=== PATIENT | female | born 1970 | race Caucasian/White ===

== ENCOUNTER → 2018-10-01 | Outpatient (REF) | payer OTHER ==
[2018-10-01 17:02] LABS: ALBUMIN 3.6 GM/DL (3.2-5.2); ALT/SGPT 20 U/L (12-78); BILIRUBIN,TOTAL 0.3 MG/DL (0.2-1.0); BLOOD UREA NITROGEN 11 MG/DL (7-18); C REACTIVE PROTEIN QUANTITATIV 0.69 MG/DL (0.00-0.30); CALCIUM LEVEL 8.7 MG/DL (8.5-10.1); CARBON DIOXIDE LEVEL 25 MEQ/L (21-32); CHLORIDE LEVEL 110 MEQ/L (98-107); CHOLESTEROL LEVEL 173 MG/DL (<200); CHOLESTEROL RISK RATIO 4.675 (<5); CREATININE FOR GFR 0.71 MG/DL (0.55-1.30); GLOMERULAR FILTRATION RATE > 60.0 (>51); GLUCOSE, FASTING 102 MG/DL (70-100); HDL CHOLESTEROL 37 MG/DL (>40); LDL CHOLESTEROL 94 MG/DL (<100); NON-HDL-C 136 MG/DL; POTASSIUM SERUM 4.5 MEQ/L (3.5-5.1); SODIUM LEVEL 141 MEQ/L (136-145); THYROID STIMULATING HORMONE 0.618 uIU/ML (0.358-3.740); TOTAL 25(OH) VITAMIN D 17.2 NG/ML (30.0-100.0); TOTAL PROTEIN 7.1 GM/DL (6.4-8.2); TRIGLYCERIDES LEVEL 210 MG/DL (<150); VITAMIN B12 LEVEL 439 PG/ML (247-911)
[2018-10-01 17:17] LABS: BASO # 0.1 10^3/uL (0.0-0.2); BASO % 0.5 % (0.0-1.0); EOS # 0.3 10^3/uL (0.0-0.50); EOS % 2.3 % (0.0-3.0); HEMATOCRIT 41.1 % (36.0-47.0); HEMOGLOBIN 12.9 g/dl (12.0-15.5); LYMPH # 2.1 10^3/uL (1.5-4.5); MEAN CORPUSCULAR HEMOGLOBIN 28.5 pg (27.0-33.0); MEAN CORPUSCULAR HGB CONC 31.4 g/dl (32.0-36.5); MEAN CORPUSCULAR VOLUME 90.7 fl (80.0-96.0); MONO # 0.8 10^3/uL (0.0-0.8); MONO % 7.3 % (0.0-5.0); NEUTROPHILS # 7.8 10^3/uL (1.8-7.7); NEUTROPHILS % 70.6 % (36.0-66.0); PLATELET COUNT, AUTOMATED 375 10^3/uL (150-450); RED BLOOD COUNT 4.53 10^6/uL (4.00-5.40)
[2018-10-01 19:26] LABS: ERYTHROCYTE SEDIMENTATION RATE 27 mm/hr (0-30)
[2018-10-02 08:16] LABS: RHEUMATOID FACTOR QUANT < 10.0 IU/ML (<15.0)
[2018-10-04 00:06] LABS: ANA (HEP2) Negative (.); CYCLIC CITRULLINATED PEPTIDE 4 units (0-19); Lyme Disease IgG/IgM Antibodie <0.91 ISR (0.00-0.90); Lyme Disease IgM Ab Quantitati <0.80 index (0.00-0.79)
== END ==
LOC: M SFHCCAPE 09:30
PROVIDERS: ATTEND Physician Assistant
DX: M79.7 Fibromyalgia (principal); E75.5 Other lipid storage disorders

== ENCOUNTER → 2018-10-01 | Outpatient (CLI) | payer OTHER ==
--- NOTE | 2018-10-01 10:41 | REP ---
Clinical: Chronic cough. Comparison: None . Technique: PA and lateral. Findings: The mediastinum and cardiac silhouette are normal. The lung chavira are clear and without acute consolidation, effusion, or pneumothorax. The skeletal structures are intact and normal. Impression: 1. No acute cardiopulmonary process.
== END ==
LOC: M CLY 10:10
PROVIDERS: ATTEND Physician Assistant
DX: R05 Cough (principal)

== ENCOUNTER → 2018-11-05 | Outpatient (CLI) | payer OTHER ==
--- NOTE | 2018-11-05 15:20 | REP ---
BILATERAL LOWER EXTREMITY VENOUS ULTRASOUND: Reflux examination. HISTORY: Leg pain, right greater than left. FINDINGS: The deep veins are anechoic and fully compressible from the groin to the popliteal fossa in both lower extremities on two-dimensional scanning. Color flow imaging is homogeneous. Spectral Doppler interrogation is unremarkable. There is no evidence of deep venous thrombosis (DVT). REFLUX FINDINGS: On the right, there is minimal reflux greater than 0.5-second seen in the common femoral vein proximally. There is reflux in the greater saphenous vein at the level of the knee on the right, 6.3 seconds in duration. No other right lower extremity reflux is seen. The greater saphenous vein measures 4 mm in AP dimension at the proximal saphenofemoral junction, 3.3 mm in AP dimension at the thigh, and 3.4 mm in AP dimension at the knee. The lesser saphenous vein measures 2.6 mm in AP dimension on the right. On the left, there is no evidence of superficial veins system reflux. There is reflux , greater than 0.5 seconds in duration, throughout the deep system however on the left. Greater saphenous vein measures 4.7 mm in AP dimension proximally, 3.3 mm at midthigh level, and 3.7 mm at the knee. The lesser saphenous vein measures 3.1 mm. IMPRESSION: Reflux is seen throughout the deep system in the left lower extremity. Minimal reflux is seen in the common femoral vein on the right and in the greater saphenous vein at the knee on the right. There is no evidence of DVT. Electronically Signed by Christiano Rod MD 11/05/2018 06:13 P
--- NOTE | 2018-11-05 17:30 | REP ---
Left upper extremity arterial Doppler ultrasound: History: Acute embolism and thrombus unspecified veins of the left upper extremity. The patient gives a history of left arm angiography at another facility May 2018 due to absent pulses. There is apparently a palpable area in the antecubital fossa. Findings: Scanning in the area of the palpable region in the left antecubital fossa shows no abnormality. Normal velocities and waveforms are observed in the arterial structures in the left upper extremity. There is no evidence of stenosis or occlusion. Velocity chart left upper extremity arteries: Proximal subclavian artery 126 cm/S Distal subclavian 66 Axillary 77 Proximal brachial 123 Mid brachial 142 Distal brachial 100 Proximal ulnar 66 Mid ulnar 59 Distal ulnar 48 Proximal radial 50 Mid radial 58 Distal radial 54 Electronically Signed by Christiano Rod MD 11/05/2018 05:21 P
== END ==
LOC: M RAD 12:29
PROVIDERS: ATTEND Surgery Vascular Surgery
DX: I82.602 Acute embolism and thrombosis of unspecified veins of left upper extremity (principal); I83.893 Varicose veins of bilateral lower extremities with other complications

== ENCOUNTER → 2018-11-27 | Outpatient (CLI) | payer OTHER ==
[2018-11-27 17:02] LABS: ALBUMIN 3.6 GM/DL (3.2-5.2); ALT/SGPT 23 U/L (12-78); AMYLASE 37 U/L (25-115); BILIRUBIN,DIRECT < 0.1 MG/DL (0.0-0.2); BILIRUBIN,TOTAL 0.3 MG/DL (0.2-1.0); C REACTIVE PROTEIN QUANTITATIV 1.43 MG/DL (0.00-0.30); LIPASE 71 U/L (73-393); TOTAL PROTEIN 7.5 GM/DL (6.4-8.2)
[2018-12-02 09:48] LABS: IGASUB3 29.2 mg/dL (13.4-97.9); IgA SERUM (part of Subclasses) 162 mg/dL (87-352); TISSUE TRANSGLUTAMINASE IgA <2 U/mL (0-3)
== END ==
LOC: M LAB 15:04
PROVIDERS: ATTEND Internal Medicine Gastroenterology
DX: R19.7 Diarrhea, unspecified (principal)

== ENCOUNTER → 2018-11-27 | Outpatient (CLI) | payer OTHER ==
--- NOTE | 2018-11-27 16:08 | REP ---
Left arm extremity deep vein duplex ultrasound: The deep veins demonstrate normal compression, normal Doppler color flow and normal Doppler waveforms with respiration augmentation at multiple levels from the brachial veins to the jugular vein. Impression: There is no left upper extremity deep vein thrombus. Electronically Signed by Jeramy Macdonald MD 11/27/2018 04:00 P
== END ==
LOC: M RAD 14:08
PROVIDERS: ATTEND Physician Assistant
DX: I74.2 Embolism and thrombosis of arteries of the upper extremities (principal); I87.2 Venous insufficiency (chronic) (peripheral)

== ENCOUNTER → 2019-01-02 | Outpatient (CLI) | payer OTHER ==
--- NOTE | 2019-01-02 15:50 | REP ---
Pelvis: Two views. History: Severe low back pain. Findings: AP and frog-leg views of the sacrum and SI joints are unremarkable. Symphysis pubis is intact. Hip joint spaces are preserved. Femoral heads are smooth and rounded. Periarticular soft tissues are unremarkable. Impression: Negative two-view pelvis radiographs. Electronically Signed by Christiano Rod MD 01/02/2019 04:09 P
--- NOTE | 2019-01-02 15:55 | REP ---
RIGHT KNEE, TWO VIEWS: Two views of the right knee performed. There is no acute fracture, dislocation, or intrinsic bone disease. Joint spaces appear normal. I do not see a significant joint effusion. IMPRESSION: Negative right knee. Electronically Signed by Jeramy Walker MD 01/05/2019 04:26 P
== END ==
LOC: M RAD 13:50
PROVIDERS: ATTEND Anesthesiology
DX: M25.561 Pain in right knee (principal)

== ENCOUNTER → 2019-01-02 | Outpatient (CLI) | payer OTHER, MEDICAID ==
--- NOTE | 2019-01-10 01:05 | ECWPNPC ---
PATIENT NAME: AMY BRITT : 1970 GENDER: FEMALE VISIT DATE: 01/02/2019 DISCHARGE DATE: 01/02/19 1341 VISIT LOCKED DATE TIME: PHYSICIAN: MELVIN BUCKNER MD RESOURCE: MELVIN BUCKNER MD REASON FOR APPOINTMENT 1. FIBROMYALGIA HISTORY OF PRESENT ILLNESS NEW PATIENT CONSULT: WHEN DID YOUR PAIN FIRST START? . BRIEFLY DESCRIBE HOW YOUR PAIN STARTED? . HOW DOES YOUR PAIN CHANGE WITH TIME? . DOES YOUR PAIN AWAKEN YOU FROM SLEEP? . HOW MANY HOURS OF SLEEP DO YOU NORMALLY GET? . ANY DIAGNOSTIC TESTING? . FACILITY WHERE TESTS WERE DONE? ____. PAIN TREATMENT TREATMENT YES CANCER HAVE YOU EVER HAD ANY TYPE OF CANCER?NO NO. 48 YEAR OLD FEMALE PATIENT WITH A HISTORY OF CHRONIC MULTIPLE BODY PART PAIN. THE PATIENT DESCRIBES THE PAIN BURNING, DAILY, AND CONTINUOUS WITH A PAIN SCORE OF 6-10/10 DEPENDING ON PHYSICAL ACTIVITY. THE PATIENT STATES SHE WAS DIAGNOSED WITH FIBROMYALGIA YEARS AGO. THE PATIENT SAYS SOME SPECIFIC AREAS OF PAIN INCLUDES CERVICAL, THORACIC, LOW BACK, RIGHT KNEE, AND FOOT PAIN. THE PATIENT SAYS SHE HAS BEEN SUFFERING FROM THE RIGHT KNEE PAIN FOR SEVERAL YEARS AND HAS RECEIVED CORTISONE SHOTS FROM HER ORTHOPEDIC IN THE PAST THAT PROVIDED A COUPLE OF MONTHS OF RELIEF FOR HER. THE PATIENT STATES THE WORST PAIN IS HER RIGHT KNEE AND LOW BACK PAIN. THE PATIENT SAYS HER PAIN INCREASES WITH ACTIVITIES AND IS AFFECTING HER ABILITY TO PERFORM HER DAILY ACTIVITIES SUCH CLEANING, WALKING, AND ENJOYING HER HOBBIES. PATIENT DENIES UNEXPLAINABLE WEIGHT LOSS, FEVER, CHILLS, NEW CHANGES ON HER URINARY OR BOWEL CONTROL. PAIN SCREENING: PATIENT HAS A COMPLAINT OF ACUTE OR CHRONIC PAIN :YES FALL RISK SCREENING: SCREENING : NO FALLS IN THE PAST YEAR. RAMEY INVENTORY: QUESTIONNAIRE ASSESSEDTBD SCORE VALUE CALCULATED TBD CURRENT MEDICATIONS TAKING ATORVASTATIN CALCIUM 40 MG TABLET 1 TABLET ORALLY ONCE A DAY TAKING FLONASE TAKING CETIRIZINE HCL 10 MG TABLET 1 BY MOUTH EVERY DAY TAKING APIXABAN 5 MG TABLET 1 TAB ORALLY BID TAKING GABAPENTIN 400 MG CAPSULE 1 CAPSULE ORALLY THREE TIMES A DAY TAKING ACETAMINOPHEN 500 MG TABLET 1-2 TABLETS NEEDED ORALLY EVERY 8 HRS TAKING DOCUSATE SODIUM 100 MG CAPSULE 1 CAPSULE NEEDED ORALLY BID TAKING VENTOLIN HFA 108 (90 BASE) MCG/ACT AEROSOL SOLUTION 2 PUFFS NEEDED INHALATION EVERY 6 HRS TAKING HYDROXYZINE HCL 50 MG TABLET 1 TABLET NEEDED ORALLY EVERY 6 HRS PRN TAKING VITAMIN D-3 5000 UNIT TABLET 1 TAB ORALLY ONCE A DAY TAKING VENLAFAXINE HCL ER 75 MG CAPSULE EXTENDED RELEASE 24 HOUR TAKE 1 CAPSULE BY MOUTH DAILY. TAKING TRAZODONE HCL 50 MG TABLET 3 TABLETS AT BEDTIME ORALLY ONCE A DAY TAKING VENLAFAXINE HCL ER 150 MG CAPSULE EXTENDED RELEASE 24 HOUR TAKE 1 CAPSULE BY MOUTH DAILY. MEDICATION LIST REVIEWED AND RECONCILED WITH THE PATIENT PAST MEDICAL HISTORY MIGRAINE FIBROMYALGIA PAF BILIARY DYSKINESIA GENERALIZED ANXIETY DISORDER MOOD DISORDER IBS SLEEP APNEA USES CPAP INSOMNIA BIPOLAR 2 DEPRESSION CHRONIC PAIN MIGRAINES WITH AURA PLANTAR FASECITIS PSTD SCIATICA PAROXYSMAL A-FIB ALLERGIES AMOXICILLIN: CONFUSION - ALLERGY CITALOPRAM HYDROBROMIDE: NAUSEA/VOMITING - SIDE EFFECTS PHENYTOIN SODIUM EXTENDED: HYPERACTIVITY - SIDE EFFECTS FLUOXETINE: AGGRESION - SIDE EFFECTS PAROXETINE HCL: AGGRESION PHENOBARBITAL: HIVES - ALLERGY SURGICAL HISTORY TUBAL LIGATION 04/08/1989 AMPUTATION OF 2ND FINGER RIGHT HAND 04/08/1995 GALLBLADDER OUT 05/2017 ARTRIAL EMBOLISM 05/28/18 FAMILY HISTORY FATHER: 63 YRS, DIAGNOSED WITH HYPERTENSION, UNSPECIFIED HEART DISEASE MOTHER: 78 YRS, UNSPECIFIED CEREBRAL ARTERY OCCLUSION WITH CEREBRAL INFARCTION, UNSPECIFIED 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 1 SON(S) , 3 DAUGHTER(S) - HEALTHY. BROTHER HEAT ATTACK FROM HYPERTENSION @ AGE 53BROTHER HYPERTENSION. SOCIAL HISTORY GENERAL: TOBACCO USE ARE YOU A:CURRENT SMOKER ARE YOU INTERESTED IN QUITTING?NOT READY TO QUIT HOW MANY CIGARETTES A DAY DO YOU SMOKE?21-30 HOW SOON AFTER YOU WAKE UP DO YOU SMOKE YOUR FIRST CIGARETTE?6-30 MIN HOW OFTEN DO YOU SMOKE CIGARETTES?EVERY DAY PATIENT COUNSELED ON THE DANGERS OF TOBACCO USE AND URGED TO QUIT:01/02/2019 VAPORNO E-CIGARETTENO OTHERS AT HOME: NONE. EDUCATION LEVEL OF EDUCATION:HIGH SCHOOL DIET: REGULAR. LANGUAGE LANGUAGES SPOKEN:PORTUGUESE DOMESTIC VIOLENCE DO YOU FEEL SAFE IN YOUR ENVIRONMENT?YES RECREATIONAL DRUG USE DRUG USE?NO EXERCISE: WALKS. LEARNING BARRIERS / SPECIAL NEEDS CHANGE FROM LAST VISIT?NO 11/18/2018 BARRIERS TO LEARNING?NO HEARING IMPAIRED?NO VISION IMPAIRED?YES COGNITIVELY IMPAIRED?NO :CORRECTIVE LENSES READINESS TO LEARN?YES LEARNING PREFERENCES?NO LEARNING CAPABILITIES PRESENT?YES EMOTIONAL BARRIERS?NO SPECIAL DEVICES?NO CNA NEEDED?NO PAIN CLINIC PFS, CLERGY, PUBLIC HEALTH REFERRALS PUBLIC HEALTH REFERRAL NEEDED?NO PFS REFERRAL NEEDED?NO WAS THE PROVIDER NOTIFIED OF ANY PERTINENT INFO?NO CLERGY REFERRAL NEEDED?NO LATEX QUESTIONNAIRE LATEX ALLERGY : HAVE YOU EVER DEVELOPED ANY TYPE OF REACTION AFTER HANDLING LATEX PRODUCTS SUCH RUBBER GLOVES, CONDOMS, DIAPHRAGMS, BALLOONS, SOCKS, OR UNDERWEAR?NO LATEX ALLERGY : HAVE YOU EVER DEVELOPED ANY TYPE OF REACTION DURING OR AFTER DENTAL APPOINTMENT, VAGINAL/RECTAL EXAMINATION, SURGICAL PROCEDURE, OR ANY OTHER EXPOSURE?NO LATEX RISK : HAVE YOU EVER HAD ANY DIFFICULTY BREATHING OR HIVES AFTER EATING OR HANDLING ANY FRUITS, OR VEGETABLES; SUCH KIWI, BANANAS, STONE FRUITS, OR CHESTNUTSNO LATEX RISK : DO YOU HAVE A PREVIOUS PERSONAL HISTORY OF MORE THAN NINE SURGERIES, SPINA BIFIDA, OR REPEATED CATHERIZATIONS? NO LATEX RISK : ARE YOU FREQUENTLY EXPOSED TO LATEX PRODUCTS IN YOUR OCCUPATION?NO DATE ASKED : 01/02/2019 CAFFEINE CAFFEINE USE?YES COFFEE,SODA,ENERGY DRINKS ADVANCE DIRECTIVE ADVANCE DIRECTIVE DISCUSSED WITH PATIENT:NO PT. HAS PAPER WORK AT HOME TENRIISM TENRIISM NO HINDUISM BELIEFS THAT WOULD IMPACT HEALTH CARE. MARITAL STATUS: .. ALCOHOL SCREENING DID YOU HAVE A DRINK CONTAINING ALCOHOL IN THE PAST YEAR?NO POINTS0 INTERPRETATIONNEGATIVE OCCUPATION: DISABILITY. HOSPITALIZATION/MAJOR DIAGNOSTIC PROCEDURE SURGERY SEIZURE 1979 BLOOD CLOT REMOVAL 05/16/18 LOOP RECORDER INPLANT 05/20/18 REVIEW OF SYSTEMS REVIEWED BY: PROVIDER: MELVIN BUCKNER MD . CONSTITUTIONAL: ANY CHANGE IN YOUR MEDICAL CONDITION? NO . CHILLS NO . FEVER NO . INFECTION: DO YOU HAVE NEW INFECTIONS? NO . DO YOU HAVE HISTORY OF MRSA? NO . MUSCULOSKELETAL: ANY NEW PATTERNS OF PAIN OR NUMBNESS? NO . SYTEMIC LUPUS NO . GASTROENTEROLOGY: ANY NEW CHANGE IN BOWEL CONTROL? YES . BARRETTS ESOPHAGUS NO . CIRRHOSIS NO . HEPATITIS NO . LIVER FAILURE NO . ACID REFLUX NO . UNEXPLAINED WEIGHT LOSS NO . GENITOURINARY: ANY NEW CHANGE IN BLADDER CONTROL? NO . IS THERE A CHANCE YOU COULD BE ? NO . HEMATOLOGY/LYMPH: DO YOU TAKE ANY BLOOD THINNERS? (FOR EXAMPLE- COUMADIN, PLAVIX, AGGRENOX, PLATEL, PRADAXA, OR XARELTO) YES . WHEN WAS YOUR LAST DOSE? DATE: TIME: . LOW PLATELET COUNT NO . SICKLE CELL DISEASE NO . VON WILLIEBRANDS NO . FACTOR V LEIDEN NO . THALLASEMIA NO . ANEMIA NO . EASY BRUISING ON ANTICOAGULANTS . NEUROLOGY: HAVE YOU FALLEN IN THE PAST 12 MONTHS? NO . ANY NEW EXTREMITY NUMBNESS OR WEAKNESS? NO . HEAD INJURY NO . DEMENTIA NO . CEREBRAL PALSY NO . MULTIPLE SCLEROSIS NO . DIZZINESS NO, LIGHTHEADED SENSATION . HEADACHE NO, ASSOCIATED WITH PHOTOPHOBIA . STROKES NO . VERTIGO NO . CARDIOLOGY: DO YOU HAVE A PACEMAKER OR DEFIBRILLATOR? NO . ANGINA NO . HEART ATTACK NO . HEART SURGERY NO . CONGESTIVE HEART FAILURE/FLUID OVERLOAD NO . CHEST PAIN NO, NON-RADIATING, OCCASIONAL . HIGH BLOOD PRESSURE NO . IRREGULAR HEART BEAT NO . RESPIRATORY: HAVE YOU BEEN SICK IN THE PAST WEEK? NO . FEVER NO . FLU LIKE SYMPTOMS? NO . CPAP YES . BYPAP NO . ASTHMA YES . EMPHYSEMA NO . CHRONIC LUNG DISEASES NO . SHORTNESS OF BREATH ON EXERTION YES . DO YOU USE ANY TYPE OF TOBACCO (SMOKE, SMOKELESS, CHEW)? YES . COUGH YES . SNORING YES . INTEGUMENTARY: DO YOU HAVE ANY RASHES OR OPEN SORES? YES, ON BACK . ALLERGIC/IMMUNO: ARE YOU ALLERGIC TO IV DYE? NO . ANY NEW ALLERGIES? NO . PSYCHIATRIC: DO YOU HAVE THOUGHTS OF HURTING YOURSELF OR SOMEONE ELSE? NO . ARE YOU ABUSED, NEGLECTED, OR IN AN UNSAFE ENVIRONMENT? NO . ENDOCRINOLOGY: ARE YOU DIABETIC? NO . THYROID DISORDER NO . OTHER: DO YOU NEED ANY PRESCRIPTIONS? NO . IF YES, PLEASE LIST: ____ . ANY NEW PROBLEMS WITH YOUR MEDICATIONS? NO . WHEN DID YOU LAST EAT? ____ . WHEN DID YOU LAST DRINK? ____ . WHAT DID YOU LAST DRINK? ____ . NAME OF PERSON DRIVING YOU HOME? ____ . DO YOU HAVE ANY OTHER QUESTIONS OR CONCERNS NO . VITAL SIGNS WT 190 LBS, HT 5'5", BMI 31.61 INDEX, BP 107/53 MM HG, HR 81 /MIN, RR 16 /MIN, TEMP 98.2 F, OXYGEN SAT % 98%, SAFE IN ENV? (Y/N) YES, NA INITIALS SC 11:04, REVIEWED BY: VANNESSA. EXAMINATION GENERAL EXAMINATION: PATIENT IS ALERT O X 3 AND COOPERATIVE. LUNGS CLEAR, TO AUSCULTATION. HEART: NO MURMURS OR GALLOPS; FACIAL CRANIAL NERVES ARE GROSSLY NORMAL. GOOD SYMMETRY OF FACIAL MUSCLE MOVEMENT. NORMAL VISUAL GRANADO. TENDERNESS OVER THE RIGHT KNEE. CREPITUS OF THE RIGHT KNEE WITH EXTENSION AND FLEXION. TENDERNESS AND PRESENCE OF BANDS OF TISSUE AND TRIGGER POINTS OF THE THORACIC AND CERVICAL AREAS. TENDERNESS IN THE LOW BACK OVER THE SACROILIAC JOINT. FABERE TEST IS POSITIVE FOR RIGHT SACROILIAC JOINT DYSFUNCTION. NOTES FROM THE REFERRING PHYSICIAN IS IN PATIENTS CHART. 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 BRITT'S PAIN MANAGEMENT CASE. DUE TO THE TRIGGER POINTS, BANDS OF TISSUE, AND RESTRICTION OF MOVEMENT, I WOULD LIKE TO MOVE FORWARD WITH NECK AND THORACIC TRIGGER POINT INJECTION AT THIS TIME. WE DISCUSSED THE BENEFITS, RISKS, AND ALTERNATIVES OF THE INJECTION AND THE PATIENT WOULD LIKE TO PROCEED. I AM ORDERING FOR A PELVIC, WITH SPECIAL ATTENTION TO THE RIGHT SACROILIAC JOINT, AND A RIGHT KNEE X-RAY TO BE PERFORMED TO GAIN BETTER UNDERSTANDING OF THE PATIENT'S PAIN IN THESE AREAS. I WILL REFER THE PATIENT TO A FILM SOUND COORDINATOR TO RECEIVE TREATMENT FOR HER RIGHT FOOT PAIN. I AM ALSO REFERRING THE PATIENT TO [facility]'S PALLIATIVE CARE STAR PROGRAM FOR MEDICATION MANAGEMENT. THE PATIENT WILL FOLLOW UP IN SEVERAL WEEKS AFTER HER INJECTION TO SEE HOW SHE IS DOING AND TO REVIEW THE X-RAY RESULTS. INSTRUCTIONS WERE GIVEN, QUESTIONS WERE ANSWERED, PATIENT REPORTS UNDERSTANDING AND AGREES WITH THE PLAN. I, CARMEN JEROME, DOCUMENTED THE ABOVE INFORMATION ACTING A SCRIBE FOR DR. BUCKNER. I HAVE REVIEWED THE ABOVE DOCUMENT, WRITTEN BY CARMEN YATES AND I VERIFY THAT IT IS ACCURATE. DEAR SHERWIN KELLY PA-C: THANK YOU FOR YOUR KIND REFERRAL OF AMY BRITT. IF YOU WANT TO DISCUSS HER CASE WITH ME PLEASE CALL ME AT THE PAIN CENTER AT [phone]. SINCERELY, MELVIN BUCKNER MD PAIN MEDICINE . OTHERS NOTES: TRIGGER POINT INJECTION, TRIGGER POINT INJECTION HOME CARE, TRIGGER POINT INJECTIONS MATERIAL WAS PUBLISHED TO [employer],TRIGGER POINT INJECTION MATERIAL WAS PRINTED,TRIGGER POINT INJECTION HOME CARE MATERIAL WAS PRINTED. PREVENTIVE MEDICINE PAIN CLINIC TEACHING: PROCEDURE TEACHING PRE TRIGGER POINT INJECTION INSTRUCTIONS REVIEWED WITH PT. VERBALIZED UNDERSTANDING.. PROCEDURE CODES FA211 ESTABILISHED PATIENT [facility] FACILITY CHARGE [id number] CURRENT MEDS W/DOSAGES DOCUMENTED G8730 PAIN ASSESS POS TOOL F/U PLAN DOC DISPOSITION & COMMUNICATION FOLLOW UP REASON: CERVICAL & THORACIC TPI, X-RAYS ELECTRONICALLY SIGNED BY MELVIN BUCKNER MD, MD ON 01/09/2019 AT 05:43 PM EDT DISCLAIMER : THIS IS A VISIT SUMMARY EXTRACTED FROM THE [employer] CHART. IT IS NOT A COPY OF THE [employer] PROGRESS NOTE. [place]
== END ==
LOC: M PAIN 10:30
PROVIDERS: ATTEND Anesthesiology
DX: M79.18 Myalgia, other site (principal); M54.5 Low back pain; G89.29 Other chronic pain; M54.6 Pain in thoracic spine; M54.2 Cervicalgia; M46.1 Sacroiliitis, not elsewhere classified; M25.561 Pain in right knee; M53.3 Sacrococcygeal disorders, not elsewhere classified; G43.909 Migraine, unspecified, not intractable, without status migrainosus; Z86.59 Personal history of other mental and behavioral disorders; G47.30 Sleep apnea, unspecified; G47.00 Insomnia, unspecified; F17.210 Nicotine dependence, cigarettes, uncomplicated; Z88.1 Allergy status to other antibiotic agents; Z88.8 Allergy status to other drugs, medicaments and biological substances; J45.909 Unspecified asthma, uncomplicated; Z79.899 Other long term (current) drug therapy

== ENCOUNTER → 2019-01-08 | Outpatient (REF) | payer OTHER, MEDICAID ==
[2019-01-08 19:16] LABS: CLOSTRIDIUM DIFFICILE PCR NEGATIVE (NEGATIVE)
== END ==
LOC: M LAB REF 18:20
PROVIDERS: ATTEND Internal Medicine Gastroenterology
DX: R19.7 Diarrhea, unspecified (principal)

== ENCOUNTER → 2019-01-15 | Outpatient (CLI) | payer OTHER, MEDICAID ==
--- NOTE | 2019-02-03 01:18 | ECWPNPC ---
PATIENT NAME: AMY BRITT : 1970 GENDER: FEMALE VISIT DATE: 01/15/2019 DISCHARGE DATE: 01/15/19 1250 VISIT LOCKED DATE TIME: PHYSICIAN: ANISHA LOVELL RESOURCE: ANISHA LOVELL REASON FOR APPOINTMENT 1. PER DR. Coker- MEDICATION MANAGEMENT HISTORY OF PRESENT ILLNESS HISTORY OF PRESENT ILLNESS: HERE FOR F/U OF CHRONIC GENERALIZED BODY PAIN WITH HX OF FIBROMYALGIA.SHE IS NEW TO THE AREA AND HAS HAD SOME DELAYS WITH ESTABLISHING WITH PRIMARY CARE AND PSYCHIATRY.SHE IS WEEPY DURING VISIT.COMPLAINING OF NECK AND GENERALIZED BACK PAIN.RATING PAIN VAS 7/10.PAIN DISRUPTS SLEEP.REVIEWED XRAYS OF PELVIS AND RIGHT KNEE DR BUCKNER ORDERED AT INITIAL VISIT.THESE ARE BASICALLY NORMAL.DISCUSSED TREATMENT OPTIONS TO INCLUDE PT AND NSAIDS.I WILL CHECK ON PALLIATIVE CARE REFERRAL THAT WAS MADE AT INITIAL VISIT. PAIN THE PATIENT DESCRIBES THE PAIN... FALL RISK SCREENING: SCREENING :NO FALLS REPORTED IN THE LAST YEAR CURRENT MEDICATIONS TAKING ATORVASTATIN CALCIUM 40 MG TABLET 1 TABLET ORALLY ONCE A DAY TAKING FLONASE TAKING APIXABAN 5 MG TABLET 1 TAB ORALLY BID TAKING ACETAMINOPHEN 500 MG TABLET 1-2 TABLETS NEEDED ORALLY EVERY 8 HRS TAKING DOCUSATE SODIUM 100 MG CAPSULE 1 CAP ORALLY BID TAKING HYDROXYZINE HCL 50 MG TABLET 1 TABLET NEEDED ORALLY EVERY 6 HRS PRN TAKING VITAMIN D-3 5000 UNIT TABLET 1 TAB ORALLY ONCE A DAY TAKING VENTOLIN HFA 108 (90 BASE) MCG/ACT AEROSOL SOLUTION 2 PUFFS NEEDED INHALATION EVERY 6 HRS TAKING GABAPENTIN 600 MG TABLET 1 TABLET ORALLY THREE TIMES DAILY TAKING VENLAFAXINE HCL ER 150 MG CAPSULE EXTENDED RELEASE 24 HOUR TAKE 1 CAPSULE BY MOUTH DAILY. TAKING VENLAFAXINE HCL ER 75 MG CAPSULE EXTENDED RELEASE 24 HOUR TAKE 1 CAPSULE BY MOUTH DAILY. TAKING TRAZODONE HCL 50 MG TABLET 3 TABLETS AT BEDTIME ORALLY ONCE A DAY TAKING CETIRIZINE HCL 10 MG TABLET 1 BY MOUTH EVERY DAY ONCE DAILY NEEDED MEDICATION LIST REVIEWED AND RECONCILED WITH THE PATIENT PAST MEDICAL HISTORY MIGRAINE FIBROMYALGIA PAF BILIARY DYSKINESIA GENERALIZED ANXIETY DISORDER MOOD DISORDER IBS SLEEP APNEA USES CPAP INSOMNIA BIPOLAR 2 DEPRESSION CHRONIC PAIN MIGRAINES WITH AURA PLANTAR FASECITIS PSTD SCIATICA PAROXYSMAL A-FIB ALLERGIES AMOXICILLIN: CONFUSION - ALLERGY CITALOPRAM HYDROBROMIDE: NAUSEA/VOMITING - SIDE EFFECTS PHENYTOIN SODIUM EXTENDED: HYPERACTIVITY - SIDE EFFECTS FLUOXETINE: AGGRESION - SIDE EFFECTS PAROXETINE HCL: AGGRESION PHENOBARBITAL: HIVES - ALLERGY SURGICAL HISTORY TUBAL LIGATION 04/08/1989 AMPUTATION OF 2ND FINGER RIGHT HAND 04/08/1995 GALLBLADDER OUT 05/2017 ARTRIAL EMBOLISM 05/28/18 FAMILY HISTORY FATHER: 63 YRS, DIAGNOSED WITH HYPERTENSION, UNSPECIFIED HEART DISEASE MOTHER: 78 YRS, UNSPECIFIED CEREBRAL ARTERY OCCLUSION WITH CEREBRAL INFARCTION, UNSPECIFIED 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 1 SON(S) , 3 DAUGHTER(S) - HEALTHY. BROTHER HEAT ATTACK FROM HYPERTENSION @ AGE 53BROTHER HYPERTENSION. SOCIAL HISTORY GENERAL: TOBACCO USE ARE YOU A:CURRENT SMOKER ARE YOU INTERESTED IN QUITTING?NOT READY TO QUIT HOW MANY CIGARETTES A DAY DO YOU SMOKE?21-30 HOW SOON AFTER YOU WAKE UP DO YOU SMOKE YOUR FIRST CIGARETTE?6-30 MIN HOW OFTEN DO YOU SMOKE CIGARETTES?EVERY DAY PATIENT COUNSELED ON THE DANGERS OF TOBACCO USE AND URGED TO QUIT:01/15/2019 VAPORNO E-CIGARETTENO OTHERS AT HOME: NONE. EDUCATION LEVEL OF EDUCATION:HIGH SCHOOL DIET: REGULAR. LANGUAGE LANGUAGES SPOKEN:ANGUILLAN DOMESTIC VIOLENCE DO YOU FEEL SAFE IN YOUR ENVIRONMENT?YES RECREATIONAL DRUG USE DRUG USE?NO EXERCISE: WALKS. LEARNING BARRIERS / SPECIAL NEEDS CHANGE FROM LAST VISIT?NO 11/18/2018 BARRIERS TO LEARNING?NO HEARING IMPAIRED?NO VISION IMPAIRED?YES COGNITIVELY IMPAIRED?NO :CORRECTIVE LENSES READINESS TO LEARN?YES LEARNING PREFERENCES?NO LEARNING CAPABILITIES PRESENT?YES EMOTIONAL BARRIERS?NO SPECIAL DEVICES?NO INTERNATIONAL NURSE NEEDED?NO PAIN CLINIC PFS, CLERGY, PUBLIC HEALTH REFERRALS PFS REFERRAL NEEDED?NO CLERGY REFERRAL NEEDED?NO PUBLIC HEALTH REFERRAL NEEDED?NO WAS THE PROVIDER NOTIFIED OF ANY PERTINENT INFO?YES HAS THE PATIENT BEEN EDUCATED REGARDING HIS/HER PLAN OF CARE?YES HAS THE PATIENT BEEN EDUCATED REGARDING PAIN, THE RISK FOR PAIN, THE IMPORTANCE OF EFFECTIVE PAIN MANAGEMENT, AND THE PAIN ASSESSMENT PROCESS?YES LATEX QUESTIONNAIRE LATEX ALLERGY : HAVE YOU EVER DEVELOPED ANY TYPE OF REACTION AFTER HANDLING LATEX PRODUCTS SUCH RUBBER GLOVES, CONDOMS, DIAPHRAGMS, BALLOONS, SOCKS, OR UNDERWEAR?NO LATEX ALLERGY : HAVE YOU EVER DEVELOPED ANY TYPE OF REACTION DURING OR AFTER DENTAL APPOINTMENT, VAGINAL/RECTAL EXAMINATION, SURGICAL PROCEDURE, OR ANY OTHER EXPOSURE?NO DATE ASKED : 01/02/2019 LATEX RISK : HAVE YOU EVER HAD ANY DIFFICULTY BREATHING OR HIVES AFTER EATING OR HANDLING ANY FRUITS, OR VEGETABLES; SUCH KIWI, BANANAS, STONE FRUITS, OR CHESTNUTSNO LATEX RISK : DO YOU HAVE A PREVIOUS PERSONAL HISTORY OF MORE THAN NINE SURGERIES, SPINA BIFIDA, OR REPEATED CATHERIZATIONS? NO LATEX RISK : ARE YOU FREQUENTLY EXPOSED TO LATEX PRODUCTS IN YOUR OCCUPATION?NO CAFFEINE CAFFEINE USE?YES COFFEE,SODA,ENERGY DRINKS ADVANCE DIRECTIVE ADVANCE DIRECTIVE DISCUSSED WITH PATIENT:NO PT. HAS PAPER WORK AT HOME [employer] NO SPIRITISM BELIEFS THAT WOULD IMPACT HEALTH CARE. MARITAL STATUS: .. ALCOHOL SCREENING DID YOU HAVE A DRINK CONTAINING ALCOHOL IN THE PAST YEAR?NO POINTS0 INTERPRETATIONNEGATIVE OCCUPATION: DISABILITY. REVIEWED WITH PATIENT 01/15/19 DECLINES ASSISTANCE WITH PAPREWORK 1206 NLJ. HOSPITALIZATION/MAJOR DIAGNOSTIC PROCEDURE SURGERY SEIZURE 1980 BLOOD CLOT REMOVAL 05/16/18 LOOP RECORDER INPLANT 05/20/18 REVIEW OF SYSTEMS REVIEWED BY: PROVIDER: ANISHA ROGERS . CONSTITUTIONAL: ANY CHANGE IN YOUR MEDICAL CONDITION? NO . CHILLS NO . FEVER NO . INFECTION: DO YOU HAVE NEW INFECTIONS? NO . DO YOU HAVE HISTORY OF MRSA? NO . MUSCULOSKELETAL: ANY NEW PATTERNS OF PAIN OR NUMBNESS? YES- STATES HER PAIN IS CONSTANT IN HER NECK AND UPPER BACK, STATES THAT HER MEDS ARE NOT WORKING FOR HER PAIN . GASTROENTEROLOGY: ANY NEW CHANGE IN BOWEL CONTROL? NO- PATIENT HAS IBS . GENITOURINARY: ANY NEW CHANGE IN BLADDER CONTROL? NO . IS THERE A CHANCE YOU COULD BE ? NO . HEMATOLOGY/LYMPH: DO YOU TAKE ANY BLOOD THINNERS? (FOR EXAMPLE- COUMADIN, PLAVIX, AGGRENOX, PLATEL, PRADAXA, OR XARELTO) NO . WHEN WAS YOUR LAST DOSE? DATE: TIME: . NEUROLOGY: HAVE YOU FALLEN IN THE PAST 12 MONTHS? NO . ANY NEW EXTREMITY NUMBNESS OR WEAKNESS? NO . CARDIOLOGY: DO YOU HAVE A PACEMAKER OR DEFIBRILLATOR? NO . RESPIRATORY: HAVE YOU BEEN SICK IN THE PAST WEEK? NO . FEVER NO . FLU LIKE SYMPTOMS? NO . COUGH NO . INTEGUMENTARY: DO YOU HAVE ANY RASHES OR OPEN SORES? NO . ALLERGIC/IMMUNO: ARE YOU ALLERGIC TO IV DYE? NO . ANY NEW ALLERGIES? NO . PSYCHIATRIC: DO YOU HAVE THOUGHTS OF HURTING YOURSELF OR SOMEONE ELSE? NO . ARE YOU ABUSED, NEGLECTED, OR IN AN UNSAFE ENVIRONMENT? NO . ENDOCRINOLOGY: ARE YOU DIABETIC? NO . OTHER: DO YOU NEED ANY PRESCRIPTIONS? NO- STATES GABAPENTIN DOES NOT WORK FOR HER . IF YES, PLEASE LIST: ____ . ANY NEW PROBLEMS WITH YOUR MEDICATIONS? NO . WHEN DID YOU LAST EAT? ____ . WHEN DID YOU LAST DRINK? ____ . WHAT DID YOU LAST DRINK? ____ . NAME OF PERSON DRIVING YOU HOME? ____ . DO YOU HAVE ANY OTHER QUESTIONS OR CONCERNS NO- PT HAD FLU SHOT 01/10/19 . VITAL SIGNS WT 188 LBS, HT 5'5", BMI 31.28 INDEX, BP 105/59 MM HG, HR 80 /MIN, RR 16 /MIN, TEMP 98.4 F, OXYGEN SAT % 97%, SAFE IN ENV? (Y/N) YES, NA INITIALS AW 1208, REVIEWED BY: CHAITANYA. EXAMINATION GENERAL EXAMINATION: GENERAL AWAKE,ALERT ,PLEASANT . PSYCH AFFECT NORMAL . LUNGS: LUNG GRANADO ARE CLEAR TO AUSCULTATION BILATERALLY. GOOD MOVEMENT OF AIR . HEART: S1, S2 IN A REGULAR RATE AND RHYTHM. NO SIGNIFICANT MURMURS, RUBS OR GALLOPS NOTED . LUMBAR SACRAL SPINE PALPATION: + FOR PAIN OVER L/S SPINE. + FOR PAIN OVER L/S PARASPINALS. NEUROLOGIC EXAM: NORMAL SENSATION LIGHT TOUCH BILAT. LOWER EXTREMITIES. ASSESSMENTS FIBROMYALGIA - M79.7 (PRIMARY) LOW BACK PAIN - M54.5 TREATMENT FIBROMYALGIA START MOBIC TABLET, 15 MG, 1 TABLET, ORALLY, ONCE A DAY, 30 DAY(S), 30, REFILLS 2 NOTES: DISCUSSED SELF HELP MODALITIES FOR FIBROMYALGIA TO INCLUDE SLEEP HYGIENE,WARM WATER SHOWERES/BATHS AND REGULAR LOW IMPACT EXCERSISE.PT 2XWK X 6WK FOR LOW BACK STRENGTHENING AND ROJM W HX OF LOW BACK PAIN. [facility] [place] [facility]IN PER DR BUCKNER PROCEDURE CODES FA211 ESTABILISHED PATIENT [facility] FACILITY CHARGE DISPOSITION & COMMUNICATION FOLLOW UP 2 MONTHS ELECTRONICALLY SIGNED BY SUE EAGLE ON 02/02/2019 AT 10:16 AM EDT DISCLAIMER : THIS IS A VISIT SUMMARY EXTRACTED FROM THE [email or web address] CHART. IT IS NOT A COPY OF THE [email or web address] PROGRESS NOTE. CHARMAINE
== END ==
LOC: M PAIN 11:30
PROVIDERS: ATTEND Nurse Practitioner Family
DX: M79.7 Fibromyalgia (principal); M54.5 Low back pain; G43.909 Migraine, unspecified, not intractable, without status migrainosus; Z86.59 Personal history of other mental and behavioral disorders; G47.30 Sleep apnea, unspecified; G47.00 Insomnia, unspecified; F17.210 Nicotine dependence, cigarettes, uncomplicated; Z88.1 Allergy status to other antibiotic agents; Z88.8 Allergy status to other drugs, medicaments and biological substances; Z79.899 Other long term (current) drug therapy

== ENCOUNTER → 2019-01-15 | Outpatient (REF) | payer OTHER, MEDICAID | LOC: M LAB REF 16:14 | PROVIDERS: ATTEND Internal Medicine Gastroenterology | DX: R19.7 Diarrhea, unspecified (principal) ==

== ENCOUNTER → 2019-02-07 | Outpatient (CLI) | payer OTHER ==
--- NOTE | 2019-02-09 07:33 | REP ---
Right knee MRI: Comparison is the PA and lateral plain film study dated 01/02/2019. The study is performed with proton density, T2 and gradient echo data sets in sagittal, axial and coronal projections: There is a small volume of joint fluid, likely physiologic. The patellofemoral articular cartilage is unremarkable. The articular cartilage of the medial lateral compartments appears thinned with mild surface irregularity compatible with mild chondromalacia. There is no marrow T2 signal. There is a small focus of T2 signal at the inferior margin of the medial retinaculum, possibly focal retinacular sprain. The lateral meniscus is unremarkable. There is faintly visible degenerative signal in the posterior horn of the medial meniscus. The medial meniscus is otherwise unremarkable. Anterior and posterior cruciate ligaments are unremarkable. The medial lateral collateral ligaments are. 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 No joint effusion. Possible focal sprain of the medial collateral ligament inferiorly. Possible degenerative signal in the medial meniscus posterior horn. Electronically Signed by Jeramy Macdonald MD 02/09/2019 07:24 A
== END ==
LOC: M RAD 12:15
PROVIDERS: ATTEND Anesthesiology
DX: M22.41 Chondromalacia patellae, right knee (principal)

== ENCOUNTER → 2019-03-02 | Outpatient (CLI) | payer OTHER, MEDICAID | LOC: M PAIN 13:00 | PROVIDERS: ATTEND Anesthesiology | DX: M79.18 Myalgia, other site (principal); M54.5 Low back pain; Z53.9 Procedure and treatment not carried out, unspecified reason ==

== ENCOUNTER → 2019-03-04 | Outpatient (CLI) | payer OTHER, MEDICAID ==
[~2019-03-04] MED LIST: BUPIVACAINE HCL 0.25% 10 ML VIAL As Ordered ONE; BUPIVACAINE HCL 0.25% 30 ML VIAL As Ordered ONE; TRIAMCINOLONE ACETONIDE SUSP 40 MG/ML VIAL (J3301) As Ordered ONE; diazePAM 5 MG TAB As Ordered ONE; oxyCODONE 5MG TAB As Ordered ONE
--- NOTE | 2019-03-24 01:25 | ECWPNPC ---
PATIENT NAME: AMY BRITT : 1970 GENDER: FEMALE VISIT DATE: 03/04/2019 DISCHARGE DATE: 03/04/19 1030 VISIT LOCKED DATE TIME: PHYSICIAN: MELVIN BUCKNER MD RESOURCE: MELVIN BUCKNER MD REASON FOR APPOINTMENT 1. TPI HISTORY OF PRESENT ILLNESS HISTORY OF PRESENT ILLNESS: PAIN THE PATIENT DESCRIBES THE PAIN... FALL RISK SCREENING: SCREENING :NO FALLS REPORTED IN THE LAST YEAR CURRENT MEDICATIONS TAKING ATORVASTATIN CALCIUM 40 MG TABLET 1 TABLET ORALLY ONCE A DAY, NOTES: 02/28/19 TAKING FLONASE , NOTES: NONE RECENT TAKING APIXABAN 5 MG TABLET 1 TAB ORALLY BID, NOTES: 02/28/19 0900 TAKING ACETAMINOPHEN 500 MG TABLET 1-2 TABLETS NEEDED ORALLY EVERY 8 HRS, NOTES: 02/28/19 TAKING DOCUSATE SODIUM 100 MG CAPSULE 1 CAP ORALLY BID, NOTES: 02/28/19 TAKING VITAMIN D-3 5000 UNIT TABLET 1 TAB ORALLY ONCE A DAY, NOTES: 02/28/19 TAKING VENTOLIN HFA 108 (90 BASE) MCG/ACT AEROSOL SOLUTION 2 PUFFS NEEDED INHALATION EVERY 6 HRS, NOTES: 02/28/19 TAKING CETIRIZINE HCL 10 MG TABLET 1 BY MOUTH EVERY DAY ONCE DAILY NEEDED, NOTES: NONE RECENT TAKING MOBIC 15 MG TABLET 1 TABLET ORALLY ONCE A DAY, NOTES: 02/28/19 TAKING HYDROXYZINE HCL 50 MG TABLET 1 TABLET NEEDED ORALLY EVERY 6 HRS PRN, NOTES: 02/28/19 TAKING GABAPENTIN 600 MG TABLET 1 TABLET ORALLY THREE TIMES DAILY, NOTES: 02/28/19 TAKING VENLAFAXINE HCL ER 75 MG CAPSULE EXTENDED RELEASE 24 HOUR TAKE 1 CAPSULE BY MOUTH DAILY. , NOTES: 02/28/19 TAKING TRAZODONE HCL 50 MG TABLET 3 TABLETS AT BEDTIME ORALLY ONCE A DAY, NOTES: 02/28/19 TAKING VENLAFAXINE HCL ER 150 MG CAPSULE EXTENDED RELEASE 24 HOUR TAKE 1 CAPSULE BY MOUTH DAILY. , NOTES: 02/28/19 MEDICATION LIST REVIEWED AND RECONCILED WITH THE PATIENT PAST MEDICAL HISTORY MIGRAINE FIBROMYALGIA PAF BILIARY DYSKINESIA GENERALIZED ANXIETY DISORDER MOOD DISORDER IBS SLEEP APNEA USES CPAP INSOMNIA BIPOLAR 2 DEPRESSION CHRONIC PAIN MIGRAINES WITH AURA PLANTAR FASECITIS PSTD SCIATICA PAROXYSMAL A-FIB ALLERGIES AMOXICILLIN: CONFUSION - ALLERGY CITALOPRAM HYDROBROMIDE: NAUSEA/VOMITING - SIDE EFFECTS PHENYTOIN SODIUM EXTENDED: HYPERACTIVITY - SIDE EFFECTS FLUOXETINE: AGGRESION - SIDE EFFECTS PAROXETINE HCL: AGGRESION PHENOBARBITAL: HIVES - ALLERGY SURGICAL HISTORY TUBAL LIGATION 04/08/1989 AMPUTATION OF 2ND FINGER RIGHT HAND 04/08/1995 GALLBLADDER OUT 05/2017 ARTRIAL EMBOLISM 05/28/18 FAMILY HISTORY FATHER: 63 YRS, DIAGNOSED WITH UNSPECIFIED HEART DISEASE, HYPERTENSION MOTHER: 78 YRS, UNSPECIFIED CEREBRAL ARTERY OCCLUSION WITH CEREBRAL INFARCTION, UNSPECIFIED 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 1 SON(S) , 3 DAUGHTER(S) - HEALTHY. BROTHER HEAT ATTACK FROM HYPERTENSION @ AGE 53BROTHER HYPERTENSION. SOCIAL HISTORY GENERAL: TOBACCO USE ARE YOU A:CURRENT SMOKER HOW OFTEN DO YOU SMOKE CIGARETTES?EVERY DAY HOW SOON AFTER YOU WAKE UP DO YOU SMOKE YOUR FIRST CIGARETTE?6-30 MIN HOW MANY CIGARETTES A DAY DO YOU SMOKE?21-30 ARE YOU INTERESTED IN QUITTING?NOT READY TO QUIT PATIENT COUNSELED ON THE DANGERS OF TOBACCO USE AND URGED TO QUIT:01/15/2019 VAPORNO E-CIGARETTENO OTHERS AT HOME: NONE. EDUCATION LEVEL OF EDUCATION:HIGH SCHOOL DIET: REGULAR. LANGUAGE LANGUAGES SPOKEN:TAIWANESE DOMESTIC VIOLENCE DO YOU FEEL SAFE IN YOUR ENVIRONMENT?YES RECREATIONAL DRUG USE DRUG USE?NO EXERCISE: WALKS. LEARNING BARRIERS / SPECIAL NEEDS CHANGE FROM LAST VISIT?NO 11/18/2018 BARRIERS TO LEARNING?NO HEARING IMPAIRED?NO VISION IMPAIRED?YES COGNITIVELY IMPAIRED?NO :CORRECTIVE LENSES READINESS TO LEARN?YES LEARNING PREFERENCES?NO LEARNING CAPABILITIES PRESENT?YES EMOTIONAL BARRIERS?NO SPECIAL DEVICES?NO RESOURCE PROTECTION SPECIALIST NEEDED?NO PAIN CLINIC PFS, CLERGY, PUBLIC HEALTH REFERRALS PFS REFERRAL NEEDED?NO CLERGY REFERRAL NEEDED?NO PUBLIC HEALTH REFERRAL NEEDED?NO WAS THE PROVIDER NOTIFIED OF ANY PERTINENT INFO?YES HAS THE PATIENT BEEN EDUCATED REGARDING HIS/HER PLAN OF CARE?YES HAS THE PATIENT BEEN EDUCATED REGARDING PAIN, THE RISK FOR PAIN, THE IMPORTANCE OF EFFECTIVE PAIN MANAGEMENT, AND THE PAIN ASSESSMENT PROCESS?YES LATEX QUESTIONNAIRE LATEX ALLERGY : HAVE YOU EVER DEVELOPED ANY TYPE OF REACTION AFTER HANDLING LATEX PRODUCTS SUCH RUBBER GLOVES, CONDOMS, DIAPHRAGMS, BALLOONS, SOCKS, OR UNDERWEAR?NO LATEX ALLERGY : HAVE YOU EVER DEVELOPED ANY TYPE OF REACTION DURING OR AFTER DENTAL APPOINTMENT, VAGINAL/RECTAL EXAMINATION, SURGICAL PROCEDURE, OR ANY OTHER EXPOSURE?NO DATE ASKED : 01/02/2019 LATEX RISK : HAVE YOU EVER HAD ANY DIFFICULTY BREATHING OR HIVES AFTER EATING OR HANDLING ANY FRUITS, OR VEGETABLES; SUCH KIWI, BANANAS, STONE FRUITS, OR CHESTNUTSNO LATEX RISK : DO YOU HAVE A PREVIOUS PERSONAL HISTORY OF MORE THAN NINE SURGERIES, SPINA BIFIDA, OR REPEATED CATHERIZATIONS? NO LATEX RISK : ARE YOU FREQUENTLY EXPOSED TO LATEX PRODUCTS IN YOUR OCCUPATION?NO CAFFEINE CAFFEINE USE?YES COFFEE,SODA,ENERGY DRINKS ADVANCE DIRECTIVE ADVANCE DIRECTIVE DISCUSSED WITH PATIENT:YES PT. HAS PAPER WORK AT HOME AND DECLINES INFO AND ASSISTANCE WITH FORM AT THIS TIME. 03/04/19 CHURCH CHURCH NO TAOISM BELIEFS THAT WOULD IMPACT HEALTH CARE. MARITAL STATUS: .. ALCOHOL SCREENING DID YOU HAVE A DRINK CONTAINING ALCOHOL IN THE PAST YEAR?NO POINTS0 INTERPRETATIONNEGATIVE OCCUPATION: DISABILITY. REVIEWED WITH PATIENT 01/15/19 DECLINES ASSISTANCE WITH PAPREWORK 1206 NLJREVIEWED WITH PATIENT 03/04/19 5900 BV. HOSPITALIZATION/MAJOR DIAGNOSTIC PROCEDURE SURGERY SEIZURE 1980 BLOOD CLOT REMOVAL 05/16/18 LOOP RECORDER INPLANT 05/20/18 REVIEW OF SYSTEMS REVIEWED BY: PROVIDER: . CONSTITUTIONAL: ANY CHANGE IN YOUR MEDICAL CONDITION? NO . CHILLS NO . FEVER NO . INFECTION: DO YOU HAVE NEW INFECTIONS? NO . DO YOU HAVE HISTORY OF MRSA? NO . MUSCULOSKELETAL: ANY NEW PATTERNS OF PAIN OR NUMBNESS? NO . GASTROENTEROLOGY: ANY NEW CHANGE IN BOWEL CONTROL? NO . GENITOURINARY: ANY NEW CHANGE IN BLADDER CONTROL? NO . IS THERE A CHANCE YOU COULD BE ? NO . HEMATOLOGY/LYMPH: DO YOU TAKE ANY BLOOD THINNERS? (FOR EXAMPLE- COUMADIN, PLAVIX, AGGRENOX, PLATEL, PRADAXA, OR XARELTO) NO . WHEN WAS YOUR LAST DOSE? DATE: TIME: . NEUROLOGY: HAVE YOU FALLEN IN THE PAST 12 MONTHS? NO . ANY NEW EXTREMITY NUMBNESS OR WEAKNESS? NO . CARDIOLOGY: DO YOU HAVE A PACEMAKER OR DEFIBRILLATOR? NO . RESPIRATORY: HAVE YOU BEEN SICK IN THE PAST WEEK? NO . FEVER NO . FLU LIKE SYMPTOMS? NO . COUGH CHRONIC SMOKERS COUGH . INTEGUMENTARY: DO YOU HAVE ANY RASHES OR OPEN SORES? PT HAS SMALL SORES TO BILATERAL ARMS, STATES SHE "PICKS" AT HER SKIN . ALLERGIC/IMMUNO: ARE YOU ALLERGIC TO IV DYE? NO . ANY NEW ALLERGIES? NO . PSYCHIATRIC: DO YOU HAVE THOUGHTS OF HURTING YOURSELF OR SOMEONE ELSE? NO . ARE YOU ABUSED, NEGLECTED, OR IN AN UNSAFE ENVIRONMENT? NO . ENDOCRINOLOGY: ARE YOU DIABETIC? NO . OTHER: DO YOU NEED ANY PRESCRIPTIONS? NO . IF YES, PLEASE LIST: ____ . ANY NEW PROBLEMS WITH YOUR MEDICATIONS? NO . WHEN DID YOU LAST EAT? 03/03/19 2300 . WHEN DID YOU LAST DRINK? 03/04/19 0600 . WHAT DID YOU LAST DRINK? [place] . NAME OF PERSON DRIVING YOU HOME? ERMA-BOYFRIEND . DO YOU HAVE ANY OTHER QUESTIONS OR CONCERNS NO . VITAL SIGNS WT 189.4 LBS, HT 5'5", BMI 31.51 INDEX, BP 121/56 MM HG, HR 78 /MIN, RR 16 /MIN, TEMP 97.3 F, OXYGEN SAT % 99%, NA INITIALS SC 09:24, REVIEWED BY: BV. ASSESSMENTS MYALGIA, OTHER SITE - M79.18 (PRIMARY) PROCEDURES PN TRIGGER POINT INJECTION WITH STEROIDS PRE PROCEDURE DIAGNOSIS 1. MYALGIA 2. PAIN AT BILATERAL THORACIC AREA AND BILATERAL LUMBAR AREA. POST PROCEDURE DIAGNOSIS 1. MYALGIA 2. PAIN AT BILATERAL THORACIC AREA AND BILATERAL LUMBAR AREA. PROCEDURE TRIGGER POINT INJECTION AT RIGHT AND LEFT THORACIC AREA AND RIGHT AND LEFT LUMBAR AREA. SURGEON DR. MELVIN BUCKNER DIRECTOR OF CORPORATE SALES NONE ANESTHESIA LOCAL PRE PROCEDURE NOTE THE PATIENT HAS A HISTORY OF CHRONIC PAIN AT THE RIGHT AND LEFT THORACIC AREA AND RIGHT AND LEFT LUMBAR AREA. I EVALUATED THE PATIENT AND REVIEWED THE CHART. THERE IS EVIDENCE OF BANDS OF TISSUE WITH RESTRICTION OF MOVEMENT AND PRESENCE OF TRIGGER POINT AT THE AFFECTED AREA. I WENT OVER THE RISKS, ALTERNATIVES, AND BENEFITS ASSOCIATED WITH THIS PROCEDURE. THE PATIENT WOULD LIKE TO PROCEED AND GIVES CONSENT TO PERFORM THE PROCEDURE. THE PATIENT DENIES UNEXPLAINABLE WEIGHT LOSS, FEVER, CHILLS, OR NEW CHANGES IN URINARY OR BOWEL CONTROL DESCRIPTION OF PROCEDURE THE PATIENT WAS BROUGHT TO THE PROCEDURE ROOM AND PLACED IN THE SITTING POSITION. THE AREA WAS CLEANED WITH ALCOHOL. THE PROCEDURE WAS DONE USING ASEPTIC STERILE TECHNIQUE. I CHECKED LATERALITY AND THE LEVEL WHERE THE PROCEDURE WAS GOING TO BE PERFORMED WITH THE PATIENT AND THE SUPPORTING STAFF AT THE MOMENT OF THE TIME OUT IN THE PROCEDURE ROOM. USING A 25-GAUGE NEEDLE, TRIGGER POINTS WERE INJECTED AT THE RIGHT AND LEFT THORACIC AREA AND RIGHT AND LEFT LUMBAR AREA WITH A TOTAL OF 40 ML OF BUPIVACAINE 0.25% AND KENALOG 40 MG. THERE WAS NO EVIDENCE OF BLOOD, PARESTHESIA OR CEREBROSPINAL FLUID DURING THE PROCEDURE. THE PATIENT WAS SENT TO THE RECOVERY ROOM. THE PATIENT WAS MOVING THE EXTREMITIES AND DOING WELL. THERE WAS NO COMPLICATION DURING THE PROCEDURE POST PROCEDURE NOTE THE PATIENT WILL BE SEEN IN A FOLLOW UP IN THE NEXT FEW WEEKS. I AM LOOKING FOR LONG LASTING PAIN RELIEF WITH THIS INJECTION FOR THE PATIENT. INSTRUCTIONS WERE GIVEN, QUESTIONS WERE ANSWERED, AND THE PATIENT EXPRESSED UNDERSTANDING AND AGREES WITH THE PLAN. I, CARMEN JEROME, DOCUMENTED THE ABOVE INFORMATION ACTING A SCRIBE FOR DR. BUCKNER. I HAVE REVIEWED THE ABOVE DOCUMENT, WRITTEN BY CARMEN JEROME SCRIBE AND I VERIFY THAT IT IS ACCURATE. PROCEDURE CODES 49097 INJECT TRIGGER POINTS 3/> DISPOSITION & COMMUNICATION FOLLOW UP 3 WEEKS ELECTRONICALLY SIGNED BY MELVIN BUCKNER MD, MD ON 03/23/2019 AT 10:52 AM EST DISCLAIMER : THIS IS A VISIT SUMMARY EXTRACTED FROM THE [employer] CHART. IT IS NOT A COPY OF THE [employer] PROGRESS NOTE. CHARMAINE
== END ==
LOC: M PAIN 09:00
PROVIDERS: ATTEND Anesthesiology
DX: M79.18 Myalgia, other site (principal); G43.909 Migraine, unspecified, not intractable, without status migrainosus; Z86.59 Personal history of other mental and behavioral disorders; G47.30 Sleep apnea, unspecified; G47.00 Insomnia, unspecified; F17.210 Nicotine dependence, cigarettes, uncomplicated; Z88.1 Allergy status to other antibiotic agents; Z88.8 Allergy status to other drugs, medicaments and biological substances; Z79.899 Other long term (current) drug therapy
CPT/HCPCS: 20553; J3301

== ENCOUNTER → 2019-03-19 | Outpatient (CLI) | payer OTHER, MEDICAID ==
--- NOTE | 2019-04-03 04:17 | ECWPNPC ---
PATIENT NAME: AMY BRITT : 1970 GENDER: FEMALE VISIT DATE: 03/19/2019 DISCHARGE DATE: 03/19/19 1443 VISIT LOCKED DATE TIME: PHYSICIAN: ANISHA LOVELL RESOURCE: ANISHA LOVELL REASON FOR APPOINTMENT 1. POST PROC HISTORY OF PRESENT ILLNESS HISTORY OF PRESENT ILLNESS: HERE FOR F/U OF CHRONIC GENERALIZED BACK PAIN.HAD TPI BILAT. THORACIC AND LUMBAR PARASPINAL REGION WITH 2 DAYS OF IMPROVEMENT THEN PAIN RETURNED TO BASELINE.CURRENTLY ATTENDING PT OVER THE PAST 4-6WKS WITH SOME AGGREVATION IN PAIN.WILL BE SEEING PALLIATIVE CARE TOMORROW. PAIN THE PATIENT DESCRIBES THE PAIN... FALL RISK SCREENING: SCREENING :NO FALLS REPORTED IN THE LAST YEAR CURRENT MEDICATIONS TAKING ATORVASTATIN CALCIUM 40 MG TABLET 1 TABLET ORALLY ONCE A DAY TAKING FLONASE TAKING APIXABAN 5 MG TABLET 1 TAB ORALLY BID TAKING ACETAMINOPHEN 500 MG TABLET 1-2 TABLETS NEEDED ORALLY EVERY 8 HRS TAKING DOCUSATE SODIUM 100 MG CAPSULE 1 CAP ORALLY BID TAKING VITAMIN D-3 5000 UNIT TABLET 1 TAB ORALLY ONCE A DAY TAKING VENTOLIN HFA 108 (90 BASE) MCG/ACT AEROSOL SOLUTION 2 PUFFS NEEDED INHALATION EVERY 6 HRS TAKING CETIRIZINE HCL 10 MG TABLET 1 BY MOUTH EVERY DAY ONCE DAILY NEEDED TAKING MOBIC 15 MG TABLET 1 TABLET ORALLY ONCE A DAY TAKING HYDROXYZINE HCL 50 MG TABLET 1 TABLET NEEDED ORALLY EVERY 6 HRS PRN TAKING GABAPENTIN 600 MG TABLET 1 TABLET ORALLY THREE TIMES DAILY TAKING VENLAFAXINE HCL ER 150 MG CAPSULE EXTENDED RELEASE 24 HOUR TAKE 1 CAPSULE BY MOUTH DAILY. , NOTES: WEANING OFF TAKING TRAZODONE HCL 50 MG TABLET 3 TABLETS AT BEDTIME ORALLY ONCE A DAY TAKING VENLAFAXINE HCL ER 75 MG CAPSULE EXTENDED RELEASE 24 HOUR TAKE 1 CAPSULE BY MOUTH DAILY. , NOTES: WEANING OFF TAKING CYMBALTA 20 MG CAPSULE DELAYED RELEASE PARTICLES 1 CAPSULE ORALLY DAILY MEDICATION LIST REVIEWED AND RECONCILED WITH THE PATIENT PAST MEDICAL HISTORY MIGRAINE FIBROMYALGIA PAF BILIARY DYSKINESIA GENERALIZED ANXIETY DISORDER MOOD DISORDER IBS SLEEP APNEA USES CPAP INSOMNIA BIPOLAR 2 DEPRESSION CHRONIC PAIN MIGRAINES WITH AURA PLANTAR FASECITIS PSTD SCIATICA PAROXYSMAL A-FIB ALLERGIES AMOXICILLIN: CONFUSION - ALLERGY CITALOPRAM HYDROBROMIDE: NAUSEA/VOMITING - SIDE EFFECTS PHENYTOIN SODIUM EXTENDED: HYPERACTIVITY - SIDE EFFECTS FLUOXETINE: AGGRESION - SIDE EFFECTS PAROXETINE HCL: AGGRESION PHENOBARBITAL: HIVES - ALLERGY SURGICAL HISTORY TUBAL LIGATION 04/08/1989 AMPUTATION OF 2ND FINGER RIGHT HAND 04/08/1995 GALLBLADDER OUT 05/2017 ARTRIAL EMBOLISM 05/28/18 FAMILY HISTORY FATHER: 63 YRS, DIAGNOSED WITH HYPERTENSION, UNSPECIFIED HEART DISEASE MOTHER: 78 YRS, UNSPECIFIED CEREBRAL ARTERY OCCLUSION WITH CEREBRAL INFARCTION, UNSPECIFIED 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 1 SON(S) , 3 DAUGHTER(S) - HEALTHY. BROTHER HEAT ATTACK FROM HYPERTENSION @ AGE 53BROTHER HYPERTENSION. SOCIAL HISTORY GENERAL: TOBACCO USE ARE YOU A:CURRENT SMOKER ARE YOU INTERESTED IN QUITTING?NOT READY TO QUIT COUNSELED THE PATIENT ON SMOKING EFFECTS, EDUCATION [id number]/12/2019 HOW MANY CIGARETTES A DAY DO YOU SMOKE?21-30 HOW SOON AFTER YOU WAKE UP DO YOU SMOKE YOUR FIRST CIGARETTE?6-30 MIN HOW OFTEN DO YOU SMOKE CIGARETTES?EVERY DAY PATIENT COUNSELED ON THE DANGERS OF TOBACCO USE AND URGED TO QUIT:03/19/2019 VAPORNO E-CIGARETTENO OTHERS AT HOME: NONE. EDUCATION LEVEL OF EDUCATION:HIGH SCHOOL DIET: REGULAR. LANGUAGE LANGUAGES SPOKEN:TURKISH DOMESTIC VIOLENCE DO YOU FEEL SAFE IN YOUR ENVIRONMENT?YES RECREATIONAL DRUG USE DRUG USE?NO EXERCISE: WALKS. LEARNING BARRIERS / SPECIAL NEEDS CHANGE FROM LAST VISIT?NO 11/18/2018 BARRIERS TO LEARNING?NO HEARING IMPAIRED?NO VISION IMPAIRED?YES COGNITIVELY IMPAIRED?NO :CORRECTIVE LENSES READINESS TO LEARN?YES LEARNING PREFERENCES?NO LEARNING CAPABILITIES PRESENT?YES EMOTIONAL BARRIERS?NO SPECIAL DEVICES?NO LAUNDRY MACHINE TENDER NEEDED?NO PAIN CLINIC PFS, CLERGY, PUBLIC HEALTH REFERRALS PFS REFERRAL NEEDED?NO CLERGY REFERRAL NEEDED?NO PUBLIC HEALTH REFERRAL NEEDED?NO WAS THE PROVIDER NOTIFIED OF ANY PERTINENT INFO?YES HAS THE PATIENT BEEN EDUCATED REGARDING HIS/HER PLAN OF CARE?YES HAS THE PATIENT BEEN EDUCATED REGARDING PAIN, THE RISK FOR PAIN, THE IMPORTANCE OF EFFECTIVE PAIN MANAGEMENT, AND THE PAIN ASSESSMENT PROCESS?YES LATEX QUESTIONNAIRE LATEX ALLERGY : HAVE YOU EVER DEVELOPED ANY TYPE OF REACTION AFTER HANDLING LATEX PRODUCTS SUCH RUBBER GLOVES, CONDOMS, DIAPHRAGMS, BALLOONS, SOCKS, OR UNDERWEAR?NO LATEX ALLERGY : HAVE YOU EVER DEVELOPED ANY TYPE OF REACTION DURING OR AFTER DENTAL APPOINTMENT, VAGINAL/RECTAL EXAMINATION, SURGICAL PROCEDURE, OR ANY OTHER EXPOSURE?NO LATEX RISK : HAVE YOU EVER HAD ANY DIFFICULTY BREATHING OR HIVES AFTER EATING OR HANDLING ANY FRUITS, OR VEGETABLES; SUCH KIWI, BANANAS, STONE FRUITS, OR CHESTNUTSNO LATEX RISK : DO YOU HAVE A PREVIOUS PERSONAL HISTORY OF MORE THAN NINE SURGERIES, SPINA BIFIDA, OR REPEATED CATHERIZATIONS? NO LATEX RISK : ARE YOU FREQUENTLY EXPOSED TO LATEX PRODUCTS IN YOUR OCCUPATION?NO DATE ASKED : 01/02/2019 CAFFEINE CAFFEINE USE?YES COFFEE,SODA,ENERGY DRINKS ADVANCE DIRECTIVE ADVANCE DIRECTIVE DISCUSSED WITH PATIENT:YES 03/19/19 PATIENT HAS PAPER WORK AT HOME AND DECLINES INFO AND ASSISTANCE WITH FORM AT THIS TIME. JS CONFUCIANISM CONFUCIANISM NO RELIGION BELIEFS THAT WOULD IMPACT HEALTH CARE. MARITAL STATUS: .. ALCOHOL SCREENING DID YOU HAVE A DRINK CONTAINING ALCOHOL IN THE PAST YEAR?NO POINTS0 INTERPRETATIONNEGATIVE OCCUPATION: DISABILITY. REVIEWED WITH PATIENT 01/15/19 DECLINES ASSISTANCE WITH PAPREWORK 1206 NLJREVIEWED WITH PATIENT 03/04/19 0924 BVREVIEWED WITH PATIENT 03/19/19 1358 JS. HOSPITALIZATION/MAJOR DIAGNOSTIC PROCEDURE SURGERY SEIZURE 1980 BLOOD CLOT REMOVAL 05/16/18 LOOP RECORDER INPLANT 05/20/18 REVIEW OF SYSTEMS REVIEWED BY: PROVIDER: ANISHA ROGERS . CONSTITUTIONAL: ANY CHANGE IN YOUR MEDICAL CONDITION? NO . CHILLS NO . FEVER NO . INFECTION: DO YOU HAVE NEW INFECTIONS? NO . DO YOU HAVE HISTORY OF MRSA? NO . MUSCULOSKELETAL: ANY NEW PATTERNS OF PAIN OR NUMBNESS? NO . GASTROENTEROLOGY: ANY NEW CHANGE IN BOWEL CONTROL? NO . GENITOURINARY: ANY NEW CHANGE IN BLADDER CONTROL? NO . IS THERE A CHANCE YOU COULD BE ? NO . HEMATOLOGY/LYMPH: DO YOU TAKE ANY BLOOD THINNERS? (FOR EXAMPLE- COUMADIN, PLAVIX, AGGRENOX, PLATEL, PRADAXA, OR XARELTO) YES, ELIQUIS . WHEN WAS YOUR LAST DOSE? DATE: 03/18/19TIME: 2100 . NEUROLOGY: HAVE YOU FALLEN IN THE PAST 12 MONTHS? NO . ANY NEW EXTREMITY NUMBNESS OR WEAKNESS? NO . CARDIOLOGY: DO YOU HAVE A PACEMAKER OR DEFIBRILLATOR? NO . RESPIRATORY: HAVE YOU BEEN SICK IN THE PAST WEEK? NO . FEVER NO . FLU LIKE SYMPTOMS? NO . COUGH YES, STATES SMOKER'S COUGH . INTEGUMENTARY: DO YOU HAVE ANY RASHES OR OPEN SORES? YES, OPEN SORES TO ARMS/LEGS FROM PATIENT SCRATCHING/DIGGING SKIN . ALLERGIC/IMMUNO: ARE YOU ALLERGIC TO IV DYE? NO . ANY NEW ALLERGIES? NO . PSYCHIATRIC: DO YOU HAVE THOUGHTS OF HURTING YOURSELF OR SOMEONE ELSE? NO . ARE YOU ABUSED, NEGLECTED, OR IN AN UNSAFE ENVIRONMENT? NO . ENDOCRINOLOGY: ARE YOU DIABETIC? NO . OTHER: DO YOU NEED ANY PRESCRIPTIONS? YES . IF YES, PLEASE LIST: ____STATES CURRENT MEDICATIONS ARE NOT HELPFUL . ANY NEW PROBLEMS WITH YOUR MEDICATIONS? NO . WHEN DID YOU LAST EAT? ____ . WHEN DID YOU LAST DRINK? ____ . WHAT DID YOU LAST DRINK? ____ . NAME OF PERSON DRIVING YOU HOME? ____ . DO YOU HAVE ANY OTHER QUESTIONS OR CONCERNS NO . VITAL SIGNS WT 193.2 LBS, HT 5'5", BMI 32.15 INDEX, BP 117/55 MM HG, HR 72 /MIN, RR 16 /MIN, TEMP 97.0 F, OXYGEN SAT % 100%, SAFE IN ENV? (Y/N) YES, NA INITIALS AW 1345, REVIEWED BY: MAUREEN. EXAMINATION GENERAL EXAMINATION: GENERAL AWAKE,ALERT ,PLEASANT . PSYCH AFFECT NORMAL . LUNGS: LUNG GRANADO ARE CLEAR TO AUSCULTATION BILATERALLY. GOOD MOVEMENT OF AIR . HEART: S1, S2 IN A REGULAR RATE AND RHYTHM. NO SIGNIFICANT MURMURS, RUBS OR GALLOPS NOTED . FOR BILAT. SIJ PALPATION: + FOR PAIN OVER L/S SPINE. + FOR PAIN OVER L/S PARASPINALS. NEUROLOGIC EXAM: NORMAL SENSATION LIGHT TOUCH BILAT. LOWER EXTREMITIES. ASSESSMENTS MYALGIA, OTHER SITE - M79.18 (PRIMARY) TREATMENT MYALGIA, OTHER SITE MELVI SPINE LS [id number] THIS DI WAS REVIEWED BY CHRISTINE AGUIRRE ON 04/02/2019 AT 15:21 PM EST ADM SPINE THORACIC [id number] THIS DI WAS REVIEWED BY CHRISTINE AGUIRRE ON 04/02/2019 AT 15:23 PM EST NOTES: CONTINUE WITH PALLIATIVE CARE EVALUATION.WE WILL CONTINUE TO EVALUATE FOR MORE INTERVENTIONAL TRIALS. PROCEDURE CODES FA211 ESTABILISHED PATIENT [facility] FACILITY CHARGE DISPOSITION & COMMUNICATION FOLLOW UP 6 WEEKS ELECTRONICALLY SIGNED BY SUE EAGLE ON 04/02/2019 AT 01:48 PM EST DISCLAIMER : THIS IS A VISIT SUMMARY EXTRACTED FROM THE [employer] CHART. IT IS NOT A COPY OF THE [employer] PROGRESS NOTE. MTDD
== END ==
LOC: M PAIN 13:30
PROVIDERS: ATTEND Nurse Practitioner Family
DX: M79.18 Myalgia, other site (principal); G43.909 Migraine, unspecified, not intractable, without status migrainosus; Z86.59 Personal history of other mental and behavioral disorders; G47.30 Sleep apnea, unspecified; G47.00 Insomnia, unspecified; F17.210 Nicotine dependence, cigarettes, uncomplicated; Z88.1 Allergy status to other antibiotic agents; Z88.8 Allergy status to other drugs, medicaments and biological substances; Z79.01 Long term (current) use of anticoagulants; Z79.899 Other long term (current) drug therapy

== ENCOUNTER → 2019-03-27 | Outpatient (CLI) | payer OTHER ==
--- NOTE | 2019-03-27 11:36 | REP ---
CT CHEST WITHOUT IV CONTRAST: CT chest performed without IV contrast and correlated with the chest radiographs of 10/01/2018. No prior CTs for comparison. Sagittal and coronal reconstruction images are performed. There is moderate fibrotic change bilaterally with upper lobe emphysematous change of a moderate degree. No consolidative infiltrate is seen bilaterally. There is a sally-fissural nodular opacity on the right on image #53, which measures 5 mm maximally. This is of doubtful significance. There is subpleural round nodule in the left lower lobe on image 46, which measures 6 mm in maximum diameter. No other nodules are seen bilaterally. There is no evidence of mediastinal or axillary adenopathy. There is mild atherosclerotic calcification of the thoracic aorta without aneurysm. The heart is normal in size. There is no pleural or pericardial effusion. There are degenerative changes of the spine. Patient has had a prior cholecystectomy. There is left adrenal adenoma measuring 1.7 cm in diameter. Density measurements are on the average of 2 Hounsfield Units consistent with adenoma. IMPRESSION: Lung RADS category 3 probably benign finding, with 6 mm nodule in the left lower lobe. Recommend followup chest CT in 6 months. Otherwise, there is moderate upper lobe emphysema and scattered fibrosis. A sally-fissural nodule on the right measures approximately 5 mm in maximum diameter and is of doubtful significance. Electronically Signed by Jeramy Walker MD 03/27/2019 04:48 P
== END ==
LOC: M RAD 09:50
PROVIDERS: ATTEND Nurse Practitioner Family
DX: F91.8 Other conduct disorders (principal); R05 Cough

== ENCOUNTER → 2019-03-27 | Outpatient (CLI) | payer OTHER ==
--- NOTE | 2019-03-27 11:40 | REP ---
Five views lumbar spine and three views thoracic spine: 03/27/2019. Indication: Thoracolumbar pain. Comparison: None. Findings: There is no acute fracture, subluxation or dislocation. Aortic atherosclerotic disease and sequelae of prior cholecystectomy are noted. Spondylosis is present, particularly at L2/L3 without significant spinal canal narrowing detected. The neural foramina are patent. There is minimal dextroscoliosis with the convexity centered at the thoracolumbar junction which may be positional. No lytic or blastic lesions are present. The visualized lungs are clear. Impression: No acute thoracolumbar spine injury. Electronically Signed by Dominick Amaya DO 03/27/2019 11:33 A
== END ==
LOC: M RAD 09:44
PROVIDERS: ATTEND Nurse Practitioner Family
DX: M79.18 Myalgia, other site (principal)

== ENCOUNTER → 2019-04-07 | Outpatient (CLI) | payer OTHER ==
[~2019-04-07] MED LIST changes: -BUPIVACAINE HCL 0.25% 10 ML VIAL As Ordered ONE; -BUPIVACAINE HCL 0.25% 30 ML VIAL As Ordered ONE; +METHACHOLINE KIT (J7674) INH ONE; -TRIAMCINOLONE ACETONIDE SUSP 40 MG/ML VIAL (J3301) As Ordered ONE; -diazePAM 5 MG TAB As Ordered ONE; -oxyCODONE 5MG TAB As Ordered ONE
== END ==
LOC: M CARPUL 13:03
PROVIDERS: ATTEND Nurse Practitioner Family
DX: R05 Cough (principal)

== ENCOUNTER → 2019-04-15 | Outpatient (REF) | payer OTHER, MEDICAID ==
[2019-04-15 17:10] LABS: ALBUMIN 3.5 GM/DL (3.2-5.2); ALT/SGPT 18 U/L (12-78); BASO # 0.1 10^3/uL (0.0-0.2); BASO % 0.9 % (0.0-1.0); BILIRUBIN,TOTAL 0.4 MG/DL (0.2-1.0); BLOOD UREA NITROGEN 13 MG/DL (7-18); CALCIUM LEVEL 8.7 MG/DL (8.5-10.1); CARBON DIOXIDE LEVEL 25 MEQ/L (21-32); CHLORIDE LEVEL 110 MEQ/L (98-107); CHOLESTEROL LEVEL 168 MG/DL (<200); CHOLESTEROL RISK RATIO 4.941 (<5); CREATININE FOR GFR 0.84 MG/DL (0.55-1.30); EOS # 0.3 10^3/uL (0.0-0.5); EOS % 3.2 % (0.0-3.0); GLOMERULAR FILTRATION RATE > 60.0 (>51); GLUCOSE, FASTING 94 MG/DL (70-100); HDL CHOLESTEROL 34 MG/DL (>40); HEMATOCRIT 39.3 % (36.0-47.0); HEMOGLOBIN 12.1 g/dl (12.0-15.5); LDL CHOLESTEROL 112 MG/DL (<100); LYMPH # 2.3 10^3/uL (1.5-5.0); MEAN CORPUSCULAR HEMOGLOBIN 28.5 pg (27.0-33.0); MEAN CORPUSCULAR HGB CONC 30.8 g/dl (32.0-36.5); MEAN CORPUSCULAR VOLUME 92.7 fl (80.0-96.0); MONO # 0.7 10^3/uL (0.0-0.8); MONO % 6.9 % (0.0-5.0); NEUTROPHILS # 6.8 10^3/uL (1.5-8.5); NEUTROPHILS % 66.6 % (36.0-66.0); NON-HDL-C 134 MG/DL; PLATELET COUNT, AUTOMATED 405 10^3/uL (150-450); POTASSIUM SERUM 4.9 MEQ/L (3.5-5.1); RED BLOOD COUNT 4.24 10^6/uL (4.00-5.40); SODIUM LEVEL 142 MEQ/L (136-145); THYROID STIMULATING HORMONE 0.943 uIU/ML (0.358-3.740); TOTAL PROTEIN 6.7 GM/DL (6.4-8.2); TRIGLYCERIDES LEVEL 109 MG/DL (<150); WHITE BLOOD COUNT 10.3 10^3/uL (4.0-10.0)
[2019-04-15 17:12] LABS: TOTAL 25(OH) VITAMIN D 36.5 NG/ML (30.0-100.0)
== END ==
LOC: M SFHCCAPE 09:50
PROVIDERS: ATTEND Physician Assistant
DX: I48.0 Paroxysmal atrial fibrillation (principal); E55.9 Vitamin D deficiency, unspecified

== ENCOUNTER → 2019-05-13 | Outpatient (CLI) | payer OTHER, MEDICAID ==
--- NOTE | 2019-05-14 01:44 | ECWPNPC ---
PATIENT NAME: AMY BRITT : 1970 GENDER: FEMALE VISIT DATE: 05/13/2019 DISCHARGE DATE: 05/13/19 1349 VISIT LOCKED DATE TIME: PHYSICIAN: ANISHA LOVELL RESOURCE: ANISHA LOVELL HISTORY OF PRESENT ILLNESS HISTORY OF PRESENT ILLNESS: HERE FOR FOLLOW-UP OF CHRONIC THORACIC AND LOW BACK PAIN. REVIEWED X-RAY OF THE THORACIC AND LUMBAR SPINE I HAD ORDERED AT HER PREVIOUS VISIT. BASICALLY NORMAL. SHE IS DOING MUCH BETTER TODAY IN REGARDS TO CHRONIC PAIN. FOLLOWING WITH PALLIATIVE CARE. USING MEDICAL MARIJUANA. ATTENDED PHYSICAL THERAPY. RECENTLY THAT WAS HELPFUL FOR GROIN PAIN. RATING PAIN LEVEL A 4/10 VAS. FINDINGS CURRENT NONSTEROIDAL MEDICATION SOMEWHAT HELPFUL. PAIN THE PATIENT DESCRIBES THE PAIN... FALL RISK SCREENING: SCREENING :NO FALLS REPORTED IN THE LAST YEAR CURRENT MEDICATIONS TAKING FLONASE TAKING ACETAMINOPHEN 500 MG TABLET 1-2 TABLETS NEEDED ORALLY EVERY 8 HRS TAKING CETIRIZINE HCL 10 MG TABLET 1 BY MOUTH EVERY DAY ONCE DAILY NEEDED TAKING HYDROXYZINE HCL 50 MG TABLET 1 TABLET NEEDED ORALLY EVERY 6 HRS PRN TAKING TRAZODONE HCL 50 MG TABLET 1 TABLET AT BEDTIME ORALLY ONCE A DAY TAKING HYDROXYZINE HCL 25 MG TABLET 1 TABLET NEEDED ORALLY EVERY 8 HRS TAKING VENTOLIN HFA 108 (90 BASE) MCG/ACT AEROSOL SOLUTION 2 PUFFS NEEDED INHALATION EVERY 6 HRS TAKING ATORVASTATIN CALCIUM 40 MG TABLET 1 TABLET ORALLY ONCE A DAY TAKING APIXABAN 5 MG TABLET 1 TAB ORALLY BID TAKING VITAMIN D-3 5000 UNIT TABLET 1 TAB ORALLY ONCE A DAY TAKING CYMBALTA 20 MG CAPSULE DELAYED RELEASE PARTICLES 1 CAPSULE ORALLY DAILY TAKING LYRICA 75 MG CAPSULE 1 CAPSULE ORALLY ONCE A DAY TAKING MOBIC 15 MG TABLET 1 TABLET ORALLY ONCE A DAY TAKING MAY HAVE - - MEDICAL MARIJUANA DIRECTED NOT-TAKING DOCUSATE SODIUM 100 MG CAPSULE 1 CAP ORALLY BID NOT-TAKING VENLAFAXINE HCL ER 150 MG CAPSULE EXTENDED RELEASE 24 HOUR TAKE 1 CAPSULE BY MOUTH DAILY. , NOTES: WEANING OFF NOT-TAKING VENLAFAXINE HCL ER 75 MG CAPSULE EXTENDED RELEASE 24 HOUR TAKE 1 CAPSULE BY MOUTH DAILY. , NOTES: WEANING OFF MEDICATION LIST REVIEWED AND RECONCILED WITH THE PATIENT PAST MEDICAL HISTORY MIGRAINE FIBROMYALGIA PAF BILIARY DYSKINESIA GENERALIZED ANXIETY DISORDER MOOD DISORDER IBS SLEEP APNEA USES CPAP INSOMNIA BIPOLAR 2 DEPRESSION CHRONIC PAIN MIGRAINES WITH AURA PLANTAR FASECITIS PSTD SCIATICA PAROXYSMAL A-FIB SPONDYLOSIS OF BACK ALLERGIES AMOXICILLIN: CONFUSION - ALLERGY CITALOPRAM HYDROBROMIDE: NAUSEA/VOMITING - SIDE EFFECTS PHENYTOIN SODIUM EXTENDED: HYPERACTIVITY - SIDE EFFECTS FLUOXETINE: AGGRESION - SIDE EFFECTS PAROXETINE HCL: AGGRESION PHENOBARBITAL: HIVES - ALLERGY SURGICAL HISTORY TUBAL LIGATION 04/08/1989 AMPUTATION OF 2ND FINGER RIGHT HAND 04/08/1995 GALLBLADDER OUT 05/2017 ARTRIAL EMBOLISM 05/28/18 FAMILY HISTORY FATHER: 63 YRS, DIAGNOSED WITH HYPERTENSION, UNSPECIFIED HEART DISEASE MOTHER: 78 YRS, UNSPECIFIED CEREBRAL ARTERY OCCLUSION WITH CEREBRAL INFARCTION, UNSPECIFIED 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 1 SON(S) , 3 DAUGHTER(S) - HEALTHY. BROTHER HEAT ATTACK FROM HYPERTENSION @ AGE 53BROTHER HYPERTENSION. SOCIAL HISTORY GENERAL: TOBACCO USE ARE YOU A:CURRENT SMOKER ARE YOU INTERESTED IN QUITTING?NOT READY TO QUIT COUNSELED THE PATIENT ON SMOKING EFFECTS, EDUCATION [id number]/05/2020 HOW MANY CIGARETTES A DAY DO YOU SMOKE?21-30 HOW SOON AFTER YOU WAKE UP DO YOU SMOKE YOUR FIRST CIGARETTE?6-30 MIN HOW OFTEN DO YOU SMOKE CIGARETTES?EVERY DAY PATIENT COUNSELED ON THE DANGERS OF TOBACCO USE AND URGED TO QUIT:05/13/2019 VAPORNO E-CIGARETTENO OTHERS AT HOME: NONE. EDUCATION LEVEL OF EDUCATION:HIGH SCHOOL DIET: REGULAR. LANGUAGE LANGUAGES SPOKEN:MALAY DOMESTIC VIOLENCE DO YOU FEEL SAFE IN YOUR ENVIRONMENT?YES RECREATIONAL DRUG USE DRUG USE?YES MEDICAL MARIJUANA EXERCISE: WALKS. LEARNING BARRIERS / SPECIAL NEEDS CHANGE FROM LAST VISIT?NO 04/16/19 BARRIERS TO LEARNING?NO HEARING IMPAIRED?NO VISION IMPAIRED?YES COGNITIVELY IMPAIRED?NO :CORRECTIVE LENSES READINESS TO LEARN?YES LEARNING PREFERENCES?NO LEARNING CAPABILITIES PRESENT?YES EMOTIONAL BARRIERS?NO SPECIAL DEVICES?NO AUTOMATION ENGINEERING TECHNICIAN NEEDED?NO PAIN CLINIC PFS, CLERGY, PUBLIC HEALTH REFERRALS PFS REFERRAL NEEDED?NO CLERGY REFERRAL NEEDED?NO PUBLIC HEALTH REFERRAL NEEDED?NO WAS THE PROVIDER NOTIFIED OF ANY PERTINENT INFO?YES HAS THE PATIENT BEEN EDUCATED REGARDING HIS/HER PLAN OF CARE?YES HAS THE PATIENT BEEN EDUCATED REGARDING PAIN, THE RISK FOR PAIN, THE IMPORTANCE OF EFFECTIVE PAIN MANAGEMENT, AND THE PAIN ASSESSMENT PROCESS?YES LATEX QUESTIONNAIRE LATEX ALLERGY : HAVE YOU EVER DEVELOPED ANY TYPE OF REACTION AFTER HANDLING LATEX PRODUCTS SUCH RUBBER GLOVES, CONDOMS, DIAPHRAGMS, BALLOONS, SOCKS, OR UNDERWEAR?NO REDNESS AND ITCHING FROM ADHESIVE BANDAGES. LATEX ALLERGY : HAVE YOU EVER DEVELOPED ANY TYPE OF REACTION DURING OR AFTER DENTAL APPOINTMENT, VAGINAL/RECTAL EXAMINATION, SURGICAL PROCEDURE, OR ANY OTHER EXPOSURE?NO LATEX RISK : HAVE YOU EVER HAD ANY DIFFICULTY BREATHING OR HIVES AFTER EATING OR HANDLING ANY FRUITS, OR VEGETABLES; SUCH KIWI, BANANAS, STONE FRUITS, OR CHESTNUTSNO LATEX RISK : DO YOU HAVE A PREVIOUS PERSONAL HISTORY OF MORE THAN NINE SURGERIES, SPINA BIFIDA, OR REPEATED CATHERIZATIONS? NO LATEX RISK : ARE YOU FREQUENTLY EXPOSED TO LATEX PRODUCTS IN YOUR OCCUPATION?NO DATE ASKED : 01/02/2019 CAFFEINE CAFFEINE USE?YES COFFEE,SODA,ENERGY DRINKS ADVANCE DIRECTIVE ADVANCE DIRECTIVE DISCUSSED WITH PATIENT:YES 05/13/2019 PATIENT HAS PAPER WORK AT HOME AND DECLINES INFO AND ASSISTANCE WITH FORM AT THIS TIME. JS QUAKER QUAKER NO MOSQUE BELIEFS THAT WOULD IMPACT HEALTH CARE. MARITAL STATUS: .. ALCOHOL SCREENING DID YOU HAVE A DRINK CONTAINING ALCOHOL IN THE PAST YEAR?NO POINTS0 INTERPRETATIONNEGATIVE OCCUPATION: DISABILITY. REVIEWED WITH PATIENT 01/15/19 DECLINES ASSISTANCE WITH PAPREWORK 1206 NLJREVIEWED WITH PATIENT 03/04/19 0924 BVREVIEWED WITH PATIENT 03/19/19 1358 JSREVIEWED WITH PATIENT 05/13/2019 1335 JS. HOSPITALIZATION/MAJOR DIAGNOSTIC PROCEDURE SURGERY SEIZURE 1980 BLOOD CLOT REMOVAL 05/16/18 LOOP RECORDER INPLANT 05/20/18 REVIEW OF SYSTEMS REVIEWED BY: PROVIDER: ANISHA ROGERS . CONSTITUTIONAL: ANY CHANGE IN YOUR MEDICAL CONDITION? YES, SPONDYLOSIS ON BACK . CHILLS NO . FEVER NO . INFECTION: DO YOU HAVE NEW INFECTIONS? NO . DO YOU HAVE HISTORY OF MRSA? NO . MUSCULOSKELETAL: ANY NEW PATTERNS OF PAIN OR NUMBNESS? NO . GASTROENTEROLOGY: ANY NEW CHANGE IN BOWEL CONTROL? NO . GENITOURINARY: ANY NEW CHANGE IN BLADDER CONTROL? NO . IS THERE A CHANCE YOU COULD BE ? NO . HEMATOLOGY/LYMPH: DO YOU TAKE ANY BLOOD THINNERS? (FOR EXAMPLE- COUMADIN, PLAVIX, AGGRENOX, PLATEL, PRADAXA, OR XARELTO) YES, ELIQUIS . WHEN WAS YOUR LAST DOSE? DATE: 05/12/2019TIME: 0900 . NEUROLOGY: HAVE YOU FALLEN IN THE PAST 12 MONTHS? NO . ANY NEW EXTREMITY NUMBNESS OR WEAKNESS? NO . CARDIOLOGY: DO YOU HAVE A PACEMAKER OR DEFIBRILLATOR? NO . RESPIRATORY: HAVE YOU BEEN SICK IN THE PAST WEEK? NO . FEVER NO . FLU LIKE SYMPTOMS? NO . COUGH NO . INTEGUMENTARY: DO YOU HAVE ANY RASHES OR OPEN SORES? NO . ALLERGIC/IMMUNO: ARE YOU ALLERGIC TO IV DYE? NO . ANY NEW ALLERGIES? NO . PSYCHIATRIC: DO YOU HAVE THOUGHTS OF HURTING YOURSELF OR SOMEONE ELSE? NO . ARE YOU ABUSED, NEGLECTED, OR IN AN UNSAFE ENVIRONMENT? NO . ENDOCRINOLOGY: ARE YOU DIABETIC? NO . OTHER: DO YOU NEED ANY PRESCRIPTIONS? NO . IF YES, PLEASE LIST: ____ . ANY NEW PROBLEMS WITH YOUR MEDICATIONS? NO . WHEN DID YOU LAST EAT? ____ . WHEN DID YOU LAST DRINK? ____ . WHAT DID YOU LAST DRINK? ____ . NAME OF PERSON DRIVING YOU HOME? ____ . DO YOU HAVE ANY OTHER QUESTIONS OR CONCERNS NO . VITAL SIGNS WT 193.4 LBS, HT 5'5", BMI 32.18 INDEX, BP 113/55 MM HG, HR 76 /MIN, RR 18 /MIN, TEMP 97.7 F, OXYGEN SAT % 98%, SAFE IN ENV? (Y/N) YES, NA INITIALS AW 1328, REVIEWED BY: MAUREEN. EXAMINATION GENERAL EXAMINATION: GENERALAWAKE,ALERT ,PLEASANT . PSYCHAFFECT NORMAL . LUNGS:LUNG GRANADO ARE CLEAR TO AUSCULTATION BILATERALLY. GOOD MOVEMENT OF AIR . HEART:S1, S2 IN A REGULAR RATE AND RHYTHM. NO SIGNIFICANT MURMURS, RUBS OR GALLOPS NOTED . ASSESSMENTS FIBROMYALGIA - M79.7 (PRIMARY) TREATMENT FIBROMYALGIA NOTES: CONTINUE WITH PALLIATIVE CARE AND MEDICAL MARIJUANA. CONTINUE HOME EXERCISE. PATIENT WILL CALL US IF HER PAIN GETS OUT OF CONTROL FOR CONSIDERATION OF MRI AND INTERVENTIONAL TREATMENT THERAPY. FOLLOW-UP IS GIVEN IN 6 MONTHS AND PATIENT CAN CALL AND CANCEL IF SHE IS DOING OKAY. PROCEDURE CODES FA211 ESTABILISHED PATIENT [facility] FACILITY CHARGE DISPOSITION & COMMUNICATION FOLLOW UP 6 MONTHS (REASON: LBP/THORACIC PAIN/FIBROMYALGIA) ELECTRONICALLY SIGNED BY SUE EAGLE ON 05/13/2019 AT 01:58 PM EST DISCLAIMER : THIS IS A VISIT SUMMARY EXTRACTED FROM THE [employer] CHART. IT IS NOT A COPY OF THE [employer] PROGRESS NOTE. CHARMAINE
== END ==
LOC: M PAIN 13:00
PROVIDERS: ATTEND Nurse Practitioner Family
DX: M79.7 Fibromyalgia (principal); G43.909 Migraine, unspecified, not intractable, without status migrainosus; Z86.59 Personal history of other mental and behavioral disorders; G47.30 Sleep apnea, unspecified; G47.00 Insomnia, unspecified; F17.210 Nicotine dependence, cigarettes, uncomplicated; Z88.1 Allergy status to other antibiotic agents; Z88.8 Allergy status to other drugs, medicaments and biological substances; Z79.01 Long term (current) use of anticoagulants; Z79.899 Other long term (current) drug therapy

== ENCOUNTER → 2019-06-22 | Outpatient (REF) | payer OTHER, MEDICAID ==
[2019-06-23 18:47] LABS: CHLAMYDIA DNA AMPLIFICATION NEGATIVE (NEGATIVE); GC DNA AMPLIFICATION NEGATIVE (NEGATIVE)
== END ==
LOC: M SFHCCAPE 15:25
PROVIDERS: ATTEND Physician Assistant
DX: Z12.4 Encounter for screening for malignant neoplasm of cervix (principal)

== ENCOUNTER → 2019-07-22 | Outpatient (REF) | payer OTHER, MEDICAID | LOC: M LAB REF 18:16 | PROVIDERS: ATTEND Dermatology | DX: C44.702 Unspecified malignant neoplasm of skin of right lower limb, including hip (principal) ==

== ENCOUNTER → 2019-09-15 | Outpatient (CLI) | payer OTHER ==
[2019-09-15 10:51] LABS: APPEARANCE, URINE HAZY (CLEAR); BACTERIA, URINE AUTO NEGATIVE (NEGATIVE); BILIRUBIN, URINE AUTO NEGATIVE (NEGATIVE); BLOOD, URINE BLOOD NEGATIVE (NEGATIVE); COLOR, URINE YELLOW (YELLOW); GLUCOSE, URINE (UA) AUTO NEGATIVE (NEGATIVE); KETONE, URINE AUTO NEGATIVE (NEGATIVE); LEUKOCYTE ESTERASE, URINE AUTO NEGATIVE (NEGATIVE); MUCUS, URINE SMALL (NEGATIVE); NITRITE, URINE AUTO NEGATIVE (NEGATIVE); PROTEIN, URINE AUTO NEGATIVE (NEGATIVE); RBC, URINE AUTO 3 /HPF (0-3); SPECIFIC GRAVITY URINE AUTO 1.015 (1.002-1.035); SQUAMOUS EPITHELIAL CELL UR AU 1 /HPF (0-6); UROBILINOGEN, URINE AUTO 0.2 mg/dL (0.0-2.0); WBC, URINE AUTO 0 /HPF (0-3)
[2019-09-15 10:55] LABS: BASO # 0.1 10^3/uL (0.0-0.2); EOS # 0.5 10^3/uL (0.0-0.5); EOS % 4.3 % (0.0-3.0); HEMATOCRIT 39.6 % (36.0-47.0); HEMOGLOBIN 12.2 g/dl (12.0-15.5); LYMPH # 2.5 10^3/uL (1.5-5.0); LYMPH % 21.5 % (24.0-44.0); MEAN CORPUSCULAR HGB CONC 30.8 g/dl (32.0-36.5); MEAN CORPUSCULAR VOLUME 90.8 fl (80.0-96.0); MONO % 8.6 % (0.0-5.0); NEUTROPHILS # 7.4 10^3/uL (1.5-8.5); NEUTROPHILS % 64.2 % (36.0-66.0); PLATELET COUNT, AUTOMATED 315 10^3/uL (150-450); RED BLOOD COUNT 4.36 10^6/uL (4.00-5.40); WHITE BLOOD COUNT 11.5 10^3/uL (4.0-10.0)
[2019-09-15 11:35] LABS: ALBUMIN 3.3 GM/DL (3.2-5.2); ALT/SGPT 25 U/L (12-78); BILIRUBIN,TOTAL 0.2 MG/DL (0.2-1.0); BLOOD UREA NITROGEN 14 MG/DL (7-18); CALCIUM LEVEL 8.6 MG/DL (8.5-10.1); CARBON DIOXIDE LEVEL 25 MEQ/L (21-32); CHLORIDE LEVEL 112 MEQ/L (98-107); CREATININE FOR GFR 0.74 MG/DL (0.55-1.30); FREE T4 0.92 NG/DL (0.76-1.46); GLOMERULAR FILTRATION RATE > 60.0 (>51); GLUCOSE, FASTING 101 MG/DL (70-100); NT-PRO BNP 133 PG/ML (<125); POTASSIUM SERUM 4.8 MEQ/L (3.5-5.1); SODIUM LEVEL 143 MEQ/L (136-145); TOTAL PROTEIN 6.7 GM/DL (6.4-8.2)
== END ==
LOC: M LAB 08:36
PROVIDERS: ATTEND Physician Assistant
DX: R60.0 Localized edema (principal)

== ENCOUNTER → 2019-09-15 | Outpatient (CLI) | payer OTHER ==
--- NOTE | 2019-09-17 17:26 | REP ---
Clinical: Dyspnea. High risk factors. Technique: Axial noncontrast images from the thoracic inlet to the upper abdomen with coronal and sagittal re-formations. Comparison: 03/27/2019. Findings: Moderate emphysematous changes primarily involving the bilateral upper lung zones again appreciated. 6 mm round noncalcified nodule in the periphery of the left lower lobe (image 46) and 4 mm perifissural nodule along the right major fissure (image 52) appear relatively stable based on short-term follow-up evaluation. No obvious new nodule or mass lesion is appreciated. There is a new ill-defined area of early atelectasis/early infiltrate involving the right middle lobe along with minimal bibasilar fibroatelectatic changes. No effusion. No pneumothorax. Tracheobronchial tree is patent. No definite adenopathy noted. Minimal atherosclerotic changes to the thoracic aorta and coronary arteries noted without aortic aneurysm. Mild stable cardiomegaly suggested. No pericardial effusion. Upper abdomen demonstrates 1.6 cm left adrenal adenoma. The musculoskeletal structures demonstrate age-related degenerative changes without acute osseous abnormality. Impression: 1. Stable chronic moderate emphysematous changes. 2. Stable noncalcified left lower lobe and right perifissural nodules. 3. No new acute nodule or mass, adenopathy or effusion. 4. Early infiltrate/atelectasis involving the right middle lobe requires clinical correlation and follow up to resolution recommended. Electronically Signed by Solomon Welch MD 09/17/2019 05:17 P
== END ==
LOC: M RAD 08:58
PROVIDERS: ATTEND Nurse Practitioner Family
DX: R06.09 Other forms of dyspnea (principal); R91.8 Other nonspecific abnormal finding of lung field

== ENCOUNTER → 2019-10-08 | Outpatient (CLI) | payer OTHER ==
[~2019-10-08] MED LIST changes: +ALBU8.5H; +ATOR40TA75 PO; +CHLO125TA PO; +DULO1CAP6 PO; +ELIQ5TAB PO; +MEDICAL MARIJUANNA PO; -METHACHOLINE KIT (J7674) INH ONE; +PANT40TA3 PO; +PREG75CA2 PO; +RISP0.5T3 PO; +SPIR12.9; +TRAZ1TAB14 PO
== END ==
LOC: M LABSMTC 11:54
PROVIDERS: ATTEND Anesthesiology
DX: Z03.89 Encounter for observation for other suspected diseases and conditions ruled out (principal); Z11.59 Encounter for screening for other viral diseases
CPT/HCPCS: C9803; U0003

== ENCOUNTER → 2019-10-08 | Outpatient (CLI) | payer OTHER ==
--- NOTE | 2019-10-08 11:54 | REP ---
Clinical: Dyspnea . Comparison: 10/01/2018 . Technique: PA and lateral. Findings: The mediastinum and cardiac silhouette are normal. The lung chavira are clear and without acute consolidation, effusion, or pneumothorax. The skeletal structures are intact and normal. Impression: 1. No acute cardiopulmonary process. Electronically Signed by Solomon Welch MD 10/08/2019 11:45 A
== END ==
LOC: M RAD 11:29
PROVIDERS: ATTEND Nurse Practitioner Family
DX: R06.00 Dyspnea, unspecified (principal)

== ENCOUNTER 2019-10-12 08:18 | Day surgery (SDC) | payer OTHER ==
[~2019-10-12] VITALS: Ht 165.1 cm; Wt 93.9 kg
[~2019-10-12 08:18] MED LIST changes: +NS 1,000 ML IV ONE; +PANT40TA29 PO; -PANT40TA3 PO
[2019-10-12] MEDS ORDERED: LIDOCAINE 2% 100MG/5ML SDV (FOR ANES.) As Ordered ONE (09:42)
[2019-10-12] MEDS ORDERED: propofoL 200 MG/20 ML VIAL As Ordered ONE ×2 (09:42→09:48)
--- NOTE | 2019-10-12 10:10 | ROOR ---
Patient Name: Karlene Davey Procedure Date: 10/12/2019 9:30 AM Date of : 1970 Age: 49 Room: [facility] Gender: Female Note Status: Finalized Procedure: Colonoscopy Indications: Chronic diarrhea Providers: Aldo Sharpe MD Referring MD: DEVIN Reilly pa-c Requesting Provider: Medicines: Monitored Anesthesia Care Complications: No immediate complications. Procedure: Pre-Anesthesia Assessment: - Prior to the procedure, a History and Physical was performed, and patient medications and allergies were reviewed. The patient is competent. The risks and benefits of the procedure and the sedation options and risks were discussed with the patient. All questions were answered and informed consent was obtained. Patient identification and proposed procedure were verified by the physician, the nurse and the anesthesiologist in the procedure room. Mental Status Examination: alert and oriented. Airway Examination: normal oropharyngeal airway and neck mobility. Respiratory Examination: clear to auscultation. CV Examination: normal. Prophylactic Antibiotics: The patient does not require prophylactic antibiotics. Prior Anticoagulants: The patient has taken Eliquis (apixaban), last dose was 2 days prior to procedure. ASA Grade Assessment: II - A patient with mild systemic disease. After reviewing the risks and benefits, the patient was deemed in satisfactory condition to undergo the procedure. The anesthesia plan was to use monitored anesthesia care (MAC). Immediately prior to administration of medications, the patient was re-assessed for adequacy to receive sedatives. The heart rate, respiratory rate, oxygen saturations, blood pressure, adequacy of pulmonary ventilation, and response to care were monitored throughout the procedure. The physical status of the patient was re-assessed after the procedure. The Colonoscope was introduced through the anus and advanced to the terminal ileum, with identification of the appendiceal orifice and IC valve. The colonoscopy was performed without difficulty. The patient tolerated the procedure well. The quality of the bowel preparation was good. The terminal ileum, ileocecal valve, appendiceal orifice, and rectum were photographed. Scope insertion time was 3 minutes. Scope withdrawal time was 9 minutes. The total duration of the procedure was 15 minutes. Findings: The perianal and digital rectal examinations were normal. Pertinent negatives include normal sphincter tone. The terminal ileum appeared normal. Two sessile polyps were found in the descending colon and ascending colon. The polyps were 3 to 4 mm in size. These polyps were removed with a cold biopsy forceps. Resection and retrieval were complete. Verification of patient identification for the specimen was done by the physician and nurse using the patient's name, date and medical record number. Estimated blood loss was minimal. Normal mucosa was found in the entire colon. Biopsies for histology were taken with a cold forceps from the right colon, left colon and rectosigmoid colon for evaluation of microscopic colitis. Non-bleeding external and internal hemorrhoids were found during retroflexion. The hemorrhoids were medium-sized. Impression: - The examined portion of the ileum was normal. - Two 3 to 4 mm polyps in the descending colon and in the ascending colon, removed with a cold biopsy forceps. Resected and retrieved. - Normal mucosa in the entire examined colon. Biopsied. - Non-bleeding external and internal hemorrhoids. Recommendation: - Patient has a contact number available for emergencies. The signs and symptoms of potential delayed complications were discussed with the patient. Return to normal activities tomorrow. Written discharge instructions were provided to the patient. - High fiber diet. - Continue present medications. - Resume Eliquis (apixaban) at prior dose today. Refer to primary physician for further adjustment of therapy. - Await pathology results. - Repeat colonoscopy in 5-10 years for surveillance based on pathology results. - Telephone GI clinic for pathology results in 2 weeks. - Return to primary care physician. Aldo Sharpe MD Aldo Sharpe MD 10/12/2019 10:09:35 AM Electronically signed by Aldo Sharpe MD Number of Addenda: 0 Note Initiated On: 10/12/2019 9:30 AM Estimated Blood Loss: Estimated blood loss was minimal.
[2019-10-12 10:20] VITALS: BP 112/75
[2019-11-26] MEDS ORDERED: D-3-50003 PO (11:21)
[2019-11-26] MEDS ORDERED: BUPR75TA5 PO (11:21)
== END 2019-10-12 10:36 | disposition home or self-care (01) ==
LOC: M OPP 08:18
PROVIDERS: ATTEND Internal Medicine Gastroenterology
DX: K63.5 Polyp of colon (principal); K64.8 Other hemorrhoids; K52.9 Noninfective gastroenteritis and colitis, unspecified; D55.9 Anemia due to enzyme disorder, unspecified; F17.210 Nicotine dependence, cigarettes, uncomplicated; I48.91 Unspecified atrial fibrillation; Z79.899 Other long term (current) drug therapy; Z88.0 Allergy status to penicillin; Z88.8 Allergy status to other drugs, medicaments and biological substances

== ENCOUNTER → 2019-10-19 | Outpatient (CLI) | payer OTHER ==
[~2019-10-19] MED LIST changes: +BUPR75TA5 PO; +D-3-50003 PO; -NS 1,000 ML IV ONE
--- NOTE | 2019-10-27 12:38 | REPMRS ---
Patient History The patient states she has not had a clinical breast exam in over a year. Patient is postmenopausal. Digital Woman Screen Mammo: October 19, 2019 - Exam #: [id number] Bilateral CC and MLO view(s) were taken. Technologist: Neli Howell Technologist Prior study comparison: July 31, 2017, bilateral digital woman screen mammo, performed at [facility]. October 03, 2016, bilateral digital woman screen mammo, performed at [facility]. FINDINGS: There are scattered fibroglandular densities. The Volpara volumetric breast density category is:B. A loop recorder is seen projecting over the medial aspect of the left breast. There has been no change in the appearance of the mammogram from the prior studies. There is a mild amount of scattered fibroglandular density which is fairly symmetric. There is no interval development of dominant mass, architectural distortion, or grouped microcalcification suggestive of malignancy. 3-D tomosynthesis shows no additional findings. Assessment: BI-RADS/ACR category 2 mammogram. Benign Findings. Recommendation Routine screening mammogram of both breasts in 1 year (for women over age 40). This patient's Lifetime Breast Cancer Risk is estimated at 6.5 %. This mammogram was interpreted with the aid of an FDA-approved computer-aided dectection system. Electronically Signed By: Kennedy Rod MD 10/27/19 [id number]
== END ==
LOC: M WHC 15:08
PROVIDERS: ATTEND Physician Assistant
DX: Z12.31 Encounter for screening mammogram for malignant neoplasm of breast (principal); Z78.0 Asymptomatic menopausal state; Z95.818 Presence of other cardiac implants and grafts

== ENCOUNTER → 2019-10-27 | Outpatient (REF) | payer OTHER ==
[2019-10-27 13:00] LABS: ALBUMIN 3.3 GM/DL (3.2-5.2); ALT/SGPT 23 U/L (12-78); BILIRUBIN,TOTAL 0.3 MG/DL (0.2-1.0); BLOOD UREA NITROGEN 13 MG/DL (7-18); CALCIUM LEVEL 8.6 MG/DL (8.5-10.1); CARBON DIOXIDE LEVEL 28 MEQ/L (21-32); CHLORIDE LEVEL 108 MEQ/L (98-107); CHOLESTEROL LEVEL 138 MG/DL (<200); CREATININE FOR GFR 0.77 MG/DL (0.55-1.30); GLOMERULAR FILTRATION RATE > 60.0 (>51); GLUCOSE, FASTING 105 MG/DL (70-100); HDL CHOLESTEROL 24 MG/DL (>40); LDL CHOLESTEROL 69 MG/DL (<100); NON-HDL-C 114 MG/DL; POTASSIUM SERUM 4.4 MEQ/L (3.5-5.1); SODIUM LEVEL 143 MEQ/L (136-145); TOTAL 25(OH) VITAMIN D 16.8 NG/ML (30.0-100.0); TOTAL PROTEIN 6.6 GM/DL (6.4-8.2); TRIGLYCERIDES LEVEL 226 MG/DL (<150)
[2019-10-27 13:02] LABS: BASO # 0.1 10^3/uL (0.0-0.2); BASO % 1.1 % (0.0-1.0); EOS # 0.9 10^3/uL (0.0-0.5); EOS % 7.1 % (0.0-3.0); HEMATOCRIT 42.6 % (36.0-47.0); HEMOGLOBIN 13.4 g/dl (12.0-15.5); LYMPH # 2.4 10^3/uL (1.5-5.0); LYMPH % 18.4 % (24.0-44.0); MEAN CORPUSCULAR HEMOGLOBIN 28.2 pg (27.0-33.0); MEAN CORPUSCULAR HGB CONC 31.5 g/dl (32.0-36.5); MEAN CORPUSCULAR VOLUME 89.5 fl (80.0-96.0); MONO % 7.9 % (0.0-5.0); NEUTROPHILS # 8.5 10^3/uL (1.5-8.5); NEUTROPHILS % 65.2 % (36.0-66.0); PLATELET COUNT, AUTOMATED 326 10^3/uL (150-450); RED BLOOD COUNT 4.76 10^6/uL (4.00-5.40)
== END ==
LOC: M SFHCCLAY 09:23
PROVIDERS: ATTEND Physician Assistant
DX: I48.0 Paroxysmal atrial fibrillation (principal); E55.9 Vitamin D deficiency, unspecified

== ENCOUNTER → 2019-11-11 | Outpatient (POV) | payer OTHER | LOC: M PAIN 09:00 | PROVIDERS: ATTEND Nurse Practitioner Family | DX: M54.5 Low back pain (principal); M54.6 Pain in thoracic spine ==

== ENCOUNTER → 2019-11-26 | Outpatient (CLI) | payer OTHER ==
[2019-11-26 13:43] LABS: BASO # 0.1 10^3/uL (0.0-0.2); BASO % 0.6 % (0.0-1.0); EOS # 0.4 10^3/uL (0.0-0.5); EOS % 2.9 % (0.0-3.0); HEMATOCRIT 44.1 % (36.0-47.0); HEMOGLOBIN 14.2 g/dl (12.0-15.5); LYMPH # 2.5 10^3/uL (1.5-5.0); LYMPH % 19.9 % (24.0-44.0); MEAN CORPUSCULAR HEMOGLOBIN 27.9 pg (27.0-33.0); MEAN CORPUSCULAR HGB CONC 32.2 g/dl (32.0-36.5); MEAN CORPUSCULAR VOLUME 86.6 fl (80.0-96.0); MONO # 0.9 10^3/uL (0.0-0.8); MONO % 7.6 % (0.0-5.0); NEUTROPHILS # 8.5 10^3/uL (1.5-8.5); NEUTROPHILS % 68.5 % (36.0-66.0); PLATELET COUNT, AUTOMATED 380 10^3/uL (150-450); RED BLOOD COUNT 5.09 10^6/uL (4.00-5.40); WHITE BLOOD COUNT 12.4 10^3/uL (4.0-10.0)
[2019-11-26 14:21] LABS: ALBUMIN 3.9 GM/DL (3.2-5.2); ALT/SGPT 33 U/L (12-78); BILIRUBIN,TOTAL 0.3 MG/DL (0.2-1.0); BLOOD UREA NITROGEN 10 MG/DL (7-18); CALCIUM LEVEL 9.6 MG/DL (8.5-10.1); CARBON DIOXIDE LEVEL 29 MEQ/L (21-32); CHLORIDE LEVEL 103 MEQ/L (98-107); CREATININE FOR GFR 0.87 MG/DL (0.55-1.30); GLOMERULAR FILTRATION RATE > 60.0 (>51); GLUCOSE, FASTING 119 MG/DL (70-100); POTASSIUM SERUM 3.9 MEQ/L (3.5-5.1); SODIUM LEVEL 137 MEQ/L (136-145); TOTAL PROTEIN 7.9 GM/DL (6.4-8.2)
[2019-11-26 14:45] LABS: ERYTHROCYTE SEDIMENTATION RATE 18 mm/hr (0-30)
[2019-11-27 14:10] LABS: ANTINUCLEAR ANTIBODIES DIRECT Negative (Negative)
== END ==
LOC: M LAB 12:39
PROVIDERS: ATTEND Specialist
DX: D72.829 Elevated white blood cell count, unspecified (principal)

== ENCOUNTER → 2020-03-02 | Outpatient (CLI) | payer OTHER ==
[2020-03-02 12:13] LABS: BASO # 0.1 10^3/uL (0.0-0.2); BASO % 0.9 % (0.0-1.0); EOS # 0.4 10^3/uL (0.0-0.5); EOS % 3.5 % (0.0-3.0); HEMATOCRIT 41.1 % (36.0-47.0); HEMOGLOBIN 12.7 g/dl (12.0-15.5); LYMPH # 2.2 10^3/uL (1.5-5.0); LYMPH % 17.7 % (24.0-44.0); MEAN CORPUSCULAR HEMOGLOBIN 27.4 pg (27.0-33.0); MEAN CORPUSCULAR HGB CONC 30.9 g/dl (32.0-36.5); MEAN CORPUSCULAR VOLUME 88.6 fl (80.0-96.0); MONO % 7.6 % (0.0-5.0); NEUTROPHILS # 8.8 10^3/uL (1.5-8.5); NEUTROPHILS % 69.6 % (36.0-66.0); PLATELET COUNT, AUTOMATED 372 10^3/uL (150-450); RED BLOOD COUNT 4.64 10^6/uL (4.00-5.40); WHITE BLOOD COUNT 12.6 10^3/uL (4.0-10.0)
[2020-03-02 13:09] LABS: ALBUMIN 3.4 GM/DL (3.2-5.2); ALT/SGPT 39 U/L (12-78); BILIRUBIN,TOTAL 0.2 MG/DL (0.2-1.0); BLOOD UREA NITROGEN 8 MG/DL (7-18); CALCIUM LEVEL 9.1 MG/DL (8.5-10.1); CARBON DIOXIDE LEVEL 26 MEQ/L (21-32); CHLORIDE LEVEL 107 MEQ/L (98-107); CHOLESTEROL LEVEL 185 MG/DL (<200); CHOLESTEROL RISK RATIO 5.781 (<5); GLOMERULAR FILTRATION RATE > 60.0 (>51); GLUCOSE, FASTING 107 MG/DL (70-100); HDL CHOLESTEROL 32 MG/DL (>40); LDL CHOLESTEROL 113 MG/DL (<100); NON-HDL-C 153 MG/DL; POTASSIUM SERUM 4.4 MEQ/L (3.5-5.1); SODIUM LEVEL 140 MEQ/L (136-145); TRIGLYCERIDES LEVEL 200 MG/DL (<150)
[2020-03-02 13:55] LABS: HEMOGLOBIN A1c 5.6 %
== END ==
LOC: M LAB 11:16
PROVIDERS: ATTEND Physician Assistant
DX: E55.9 Vitamin D deficiency, unspecified (principal); D72.829 Elevated white blood cell count, unspecified; R73.01 Impaired fasting glucose

== ENCOUNTER → 2020-04-06 | Outpatient (CLI) | payer OTHER ==
[~2020-04-06] MED LIST changes: -ALBU8.5H; +ALBU8.5H INH; +ARNU1INH INH; +HYDR50TA70 PO; +INCR1INH INH; +RISP-7 PO; -RISP0.5T3 PO
== END ==
LOC: M LABSMTC 11:05
PROVIDERS: ATTEND Anesthesiology
DX: Z01.812 Encounter for preprocedural laboratory examination (principal); Z20.828 Contact with and (suspected) exposure to other viral communicable diseases

== ENCOUNTER 2020-04-11 12:21 | Day surgery (SDC) | payer OTHER ==
[~2020-04-11] VITALS: Ht 165.1 cm; Wt 101.2 kg
[~2020-04-11 12:21] MED LIST changes: +NS 1,000 ML IV ONE
[2020-04-11] MEDS ORDERED: fentaNYL 100 MCG/2 ML INJECTION (J3010) As Ordered ONE (14:32)
[2020-04-11] MEDS ORDERED: LIDOCAINE 2% 100MG/5ML SDV (FOR ANES.) As Ordered ONE (14:41)
[2020-04-11] MEDS ORDERED: propofoL 200 MG/20 ML VIAL As Ordered ONE (14:41)
[2020-04-11 15:10] VITALS: BP 127/71
--- NOTE | 2020-04-11 15:27 | ROOR ---
Patient Name: Karlene Davey Procedure Date: 04/11/2020 2:28 PM Date of : 1970 Age: 50 Room: [facility] Gender: Female Note Status: Finalized Procedure: Upper GI endoscopy Indications: Dyspepsia Providers: Aldo Sharpe MD Referring MD: DEVIN Reilly pa-c Requesting Provider: Medicines: Monitored Anesthesia Care Complications: No immediate complications. Procedure: Pre-Anesthesia Assessment: - Prior to the procedure, a History and Physical was performed, and patient medications and allergies were reviewed. The patient is competent. The risks and benefits of the procedure and the sedation options and risks were discussed with the patient. All questions were answered and informed consent was obtained. Patient identification and proposed procedure were verified by the physician, the nurse and the anesthesiologist in the procedure room. Mental Status Examination: alert and oriented. Airway Examination: normal oropharyngeal airway and neck mobility. Respiratory Examination: clear to auscultation. CV Examination: normal. Prophylactic Antibiotics: The patient does not require prophylactic antibiotics. Prior Anticoagulants: The patient has taken Eliquis (apixaban), last dose was 2 days prior to procedure. ASA Grade Assessment: II - A patient with mild systemic disease. After reviewing the risks and benefits, the patient was deemed in satisfactory condition to undergo the procedure. The anesthesia plan was to use monitored anesthesia care (MAC). Immediately prior to administration of medications, the patient was re-assessed for adequacy to receive sedatives. The heart rate, respiratory rate, oxygen saturations, blood pressure, adequacy of pulmonary ventilation, and response to care were monitored throughout the procedure. The physical status of the patient was re-assessed after the procedure. The Endoscope was introduced through the mouth, and advanced to the second part of duodenum. The upper GI endoscopy was accomplished without difficulty. The patient tolerated the procedure well. Findings: The examined esophagus was normal. Scattered mild inflammation characterized by erythema and granularity was found in the gastric antrum. Biopsies were taken with a cold forceps for Helicobacter pylori testing. Verification of patient identification for the specimen was done by the physician and nurse using the patient's name, date and medical record number. Estimated blood loss was minimal. No gross lesions were noted in the duodenal bulb and in the second portion of the duodenum. Biopsies for histology were taken with a cold forceps for evaluation of celiac disease. Impression: - Normal esophagus. - Gastritis. Biopsied. - No gross lesions in the duodenal bulb and in the second portion of the duodenum. Biopsied. Recommendation: - Patient has a contact number available for emergencies. The signs and symptoms of potential delayed complications were discussed with the patient. Return to normal activities tomorrow. Written discharge instructions were provided to the patient. - High fiber diet. - Continue present medications. - Await pathology results. - Resume Eliquis (apixaban) at prior dose today. Refer to primary physician for further adjustment of therapy. - Telephone GI clinic for pathology results in 1 week. - Return to primary care physician. Procedure Code(s): --- Professional --- 60074, Esophagogastroduodenoscopy, flexible, transoral; with biopsy, single or multiple Diagnosis Code(s): --- Professional --- K29.70, Gastritis, unspecified, without bleeding R10.13, Epigastric pain CPT copyright 2019 [employer]. All rights reserved. The codes documented in this report are preliminary and upon support group manager review may be revised to meet current compliance requirements. Aldo Sharpe MD Aldo Sharpe MD 04/11/2020 3:27:57 PM Electronically signed by lAdo Sharpe MD Number of Addenda: 0 Note Initiated On: 04/11/2020 2:28 PM Estimated Blood Loss: Estimated blood loss was minimal.
== END 2020-04-11 15:35 | disposition home or self-care (01) ==
LOC: M OPP 12:21
PROVIDERS: ATTEND Internal Medicine Gastroenterology
DX: R10.13 Epigastric pain (principal); K29.70 Gastritis, unspecified, without bleeding
CPT/HCPCS: 43239; 88305; J3010

== ENCOUNTER → 2020-05-03 | Outpatient (CLI) | payer OTHER ==
[~2020-05-03] MED LIST changes: -NS 1,000 ML IV ONE
--- NOTE | 2020-05-03 09:22 | REP ---
INDICATION: ABN FINDING OF LUNG FIELD, COPD UNSPECIFIED COMPARISON: None. TECHNIQUE: Real time candelario scale ultrasound examination using curved array transducer. FINDINGS: Liver is mildly enlarged and measures 21.2 cm in craniocaudal length, but normal in contour without focal hepatic lesion identified. Pancreas is incompletely evaluated due to interposed bowel gas. Patient is status post cholecystectomy. No biliary ductal dilatation is appreciated and the common bile duct measures 6.0 mm diameter. Right kidney is normal in reniform shape without hydronephrosis and measures 11.3 x 5.0 x 4.5 cm No ascites in the visualized right upper quadrant. Visualized abdominal aorta appears normal and measures 2.7 cm maximal diameter. IMPRESSION: Mild hepatomegaly without focal hepatic lesion. <Electronically signed by Solomon Welch > 05/03/20 0993
== END ==
LOC: M RAD 08:35
PROVIDERS: ATTEND Internal Medicine Gastroenterology
DX: R16.0 Hepatomegaly, not elsewhere classified (principal); R10.11 Right upper quadrant pain

== ENCOUNTER → 2020-05-03 | Outpatient (CLI) | payer OTHER ==
--- NOTE | 2020-05-03 09:57 | REP ---
INDICATION: ABN FINDING OF LUNG FIELD, COPD UNSPECIFIED COMPARISON: 09/15/2019. TECHNIQUE: Axial noncontrast images from the thoracic inlet to the upper abdomen with coronal and sagittal reformations. This CT examination was performed using the following dose reduction techniques: Automated exposure control, adjustment of mA and/or kv according to the patient's size, and use of iterative reconstruction technique. FINDINGS: Moderate to advanced primarily upper lobe emphysematous changes are again identified and similar to prior examination. Previously noted right middle lobe atelectasis/consolidation has resolved. Few scattered noncalcified nodules including 4.5 mm nodule in the right upper lobe (image 32), 4 mm perifissural nodule along the right major fissure (image 50), and 6 mm noncalcified nodule along the periphery of the left lower lobe (image 43) remain essentially stable when allowing for variation in technique. No new acute consolidation, significant nodule or mass. No effusion. No pneumothorax. Tracheobronchial tree is patent. No obvious adenopathy is appreciated although evaluation is limited due to lack of contrast. Thyroid gland is grossly normal. Mediastinum including thoracic aorta and heart/pericardium are stable. Surrounding musculoskeletal structures are intact. Limited upper abdomen again demonstrates stable left adrenal adenoma. IMPRESSION: 1. Moderate emphysematous changes similar to prior examination. 2. Few noncalcified nodules as described above remains stable compared to 09/15/2019. 3. No new acute mediastinal or pleuroparenchymal process appreciated. <Electronically signed by Solomon Welch > 05/03/20 0953
== END ==
LOC: M RAD 08:40
PROVIDERS: ATTEND Nurse Practitioner Family
DX: R91.8 Other nonspecific abnormal finding of lung field (principal); J44.9 Chronic obstructive pulmonary disease, unspecified

== ENCOUNTER → 2020-06-09 | Outpatient (REF) | payer OTHER | LOC: M SFHCCLAY 15:17 | PROVIDERS: ATTEND Physician Assistant | DX: N76.0 Acute vaginitis (principal) ==

== ENCOUNTER → 2020-07-27 | Outpatient (REF) | payer OTHER | LOC: M LAB REF 17:14 | PROVIDERS: ATTEND Physician Assistant | DX: L57.0 Actinic keratosis (principal) ==

== ENCOUNTER → 2020-08-12 | Outpatient (REF) ==
--- NOTE | 2020-08-12 16:39 | REP ---
INDICATION: DDD: BACK PAIN. COMPARISON: 03/27/2019 a full series TECHNIQUE: AP and lateral views FINDINGS: Vertebral body height and alignment is unchanged. Marginal osteophytosis and anterior lipping unchanged. Mild disc space narrowing status ". No new abnormality is noted. IMPRESSION: Stable chronic changes <Electronically signed by Carlyle Cornelius > 08/12/20 [id number]
--- NOTE | 2020-08-12 16:44 | REP ---
INDICATION: DDD: BACK PAIN. COMPARISON: None. TECHNIQUE: Three views of the cervical spine are obtained. Lateral, open-mouth odontoid, and AP projection. FINDINGS: On the AP projection the head is tilted to the left. Open-mouth odontoid view is unremarkable. Patient is edentulous. On the lateral radiograph there is straightening of the normal cervical lordosis. There is discogenic spurring mild in degree at C4-5 C5-6 and C6-7. The C7-T1 level is not well displayed on lateral radiograph. Disc spaces are maintained. Alignment is normal. IMPRESSION: Mild degenerative disc disease as noted above. Dextroconvex curve on the AP view. <Electronically signed by Kennedy Rod > 08/12/20 [id number]
== END ==
LOC: M RAD 14:04
PROVIDERS: ATTEND Internal Medicine
DX: Z02.71 Encounter for disability determination (principal); M54.9 Dorsalgia, unspecified

== ENCOUNTER → 2020-09-28 | Outpatient (REF) | payer OTHER ==
[2020-09-28 16:48] LABS: HEMOGLOBIN A1c 5.8 %
[2020-09-28 16:52] LABS: BASO # 0.1 10^3/uL (0.0-0.2); BASO % 0.9 % (0.0-1.0); EOS # 0.5 10^3/uL (0.0-0.5); EOS % 3.5 % (0.0-3.0); HEMATOCRIT 43.1 % (36.0-47.0); HEMOGLOBIN 13.3 g/dl (12.0-15.5); LYMPH # 2.6 10^3/uL (1.5-5.0); LYMPH % 19.8 % (24.0-44.0); MEAN CORPUSCULAR HEMOGLOBIN 27.4 pg (27.0-33.0); MEAN CORPUSCULAR HGB CONC 30.9 g/dl (32.0-36.5); MEAN CORPUSCULAR VOLUME 88.9 fl (80.0-96.0); MONO # 0.8 10^3/uL (0.0-0.8); MONO % 6.4 % (2.0-8.0); NEUTROPHILS % 68.9 % (36.0-66.0); PLATELET COUNT, AUTOMATED 408 10^3/uL (150-450); RED BLOOD COUNT 4.85 10^6/uL (4.00-5.40)
[2020-09-28 17:05] LABS: ALBUMIN 3.3 GM/DL (3.2-5.2); ALT/SGPT 25 U/L (12-78); BILIRUBIN,TOTAL 0.2 MG/DL (0.2-1.0); BLOOD UREA NITROGEN 9 MG/DL (7-18); CALCIUM LEVEL 8.7 MG/DL (8.5-10.1); CARBON DIOXIDE LEVEL 28 MEQ/L (21-32); CHLORIDE LEVEL 106 MEQ/L (98-107); CHOLESTEROL LEVEL 126 MG/DL (<200); GLOMERULAR FILTRATION RATE > 60.0 (>51); GLUCOSE, FASTING 98 MG/DL (70-100); HDL CHOLESTEROL 30 MG/DL (>40); LDL CHOLESTEROL 66 MG/DL (<100); NON-HDL-C 96 MG/DL; POTASSIUM SERUM 4.3 MEQ/L (3.5-5.1); SODIUM LEVEL 140 MEQ/L (136-145); THYROID STIMULATING HORMONE 0.652 uIU/ML (0.358-3.740); TOTAL PROTEIN 6.6 GM/DL (6.4-8.2); TRIGLYCERIDES LEVEL 152 MG/DL (<150)
== END ==
LOC: M SFHCCAPE 11:33
PROVIDERS: ATTEND Physician Assistant
DX: R73.01 Impaired fasting glucose (principal); E55.9 Vitamin D deficiency, unspecified

== ENCOUNTER → 2020-10-17 | Outpatient (CLI) | payer OTHER ==
--- NOTE | 2020-10-18 00:30 | REP ---
INDICATION: EMPHYSEMA COMPARISON: 05/03/2020, 09/15/2019, 03/27/2019 TECHNIQUE: Axial noncontrast images from the thoracic inlet to the upper abdomen with coronal and sagittal reformations. This CT examination was performed using the following dose reduction techniques: Automated exposure control, adjustment of mA and/or kv according to the patient's size, and use of iterative reconstruction technique. FINDINGS: Lung chavira demonstrate progressive COPD/emphysematous changes with predominately upper lobe bullae. No acute consolidation, suspicious nodule, or mass. Few small noncalcified nodular densities measuring up to approximately 6 mm in the subpleural left lower lobe (series 3, image 43) remain essentially unchanged compared to 2019. No acute consolidation, suspicious nodule or mass lesion. No effusion. No pneumothorax. IMPRESSION: 1. COPD/emphysematous changes. 2. Few scattered noncalcified nodules unchanged through 2019. <Electronically signed by Solomon Welch > 10/18/20 0026
== END ==
LOC: M PLAIMG 13:59
PROVIDERS: ATTEND Nurse Practitioner Family
DX: J43.9 Emphysema, unspecified (principal); R91.8 Other nonspecific abnormal finding of lung field

== ENCOUNTER → 2020-12-02 | Outpatient (CLI) | payer OTHER ==
--- NOTE | 2020-12-02 16:34 | REPMRS ---
Patient History The patient states she had a clinical breast exam in June 2020. Patient is postmenopausal and has history of other cancer at age 50. Patient states no breast complaints today. Patient has signed MRS History Sheet. Digital Woman Screen Mammo: December 02, 2020 - Exam #: [id number] Bilateral CC and MLO view(s) were taken. Technologist: Sandhya Rico, Technologist Prior study comparison: October 19, 2019, bilateral digital woman screen mammo performed at [facility]. July 31, 2017, bilateral digital woman screen mammo, performed at [facility]. November 01, 2016, bilateral digital woman screen mammo, performed at [facility]. FINDINGS: There are scattered fibroglandular densities. The Volpara volumetric breast density category is: B. There is a loop recorder projecting over the medial aspect of the left breast on the craniocaudal view. There is a moderate amount of residual fibroglandular tissue which is fairly symmetric. There is no interval development of dominant mass, architectural distortion, or grouped microcalcification typical of malignancy. There has been no change in the appearance of the mammogram from the prior studies. 3-D tomosynthesis shows no additional findings. Assessment: BI-RADS/ACR category 2 mammogram. Benign Findings. Recommendation Routine screening mammogram of both breasts in 1 year (for women over age 40). This patient's [facility] Lifetime Breast Cancer RIsk is estimated at 6.3 %. This mammogram was interpreted with the aid of an FDA-approved computer-aided dectection system. Electronically Signed By: Kennedy Rod MD 12/02/20 [id number]
== END ==
LOC: M WHC 14:21
PROVIDERS: ATTEND Physician Assistant
DX: Z12.31 Encounter for screening mammogram for malignant neoplasm of breast (principal); Z78.0 Asymptomatic menopausal state; Z85.89 Personal history of malignant neoplasm of other organs and systems

== ENCOUNTER → 2020-12-22 | Outpatient (CLI) | payer OTHER ==
--- NOTE | 2020-12-22 16:11 | REP ---
INDICATION: EPICONDYLITIS. COMPARISON: None. TECHNIQUE: Three views of the left elbow FINDINGS: Generalized age-related changes are appreciated. Anterior and posterior fat pads normal position without evidence for effusion. No significant posterior swelling identified. No acute fracture or dislocation. IMPRESSION: Generalized age-related changes are suggested. <Electronically signed by Solomon Welch > 12/22/20 [id number]
== END ==
LOC: M SOG 15:50
PROVIDERS: ATTEND Orthopaedic Surgery Sports Medicine
DX: M77.12 Lateral epicondylitis, left elbow (principal)

== ENCOUNTER → 2021-05-03 | Outpatient (CLI) | payer OTHER | LOC: M PLAIMG 13:45 | PROVIDERS: ATTEND Nurse Practitioner Family | DX: J43.9 Emphysema, unspecified (principal); R91.1 Solitary pulmonary nodule ==

== ENCOUNTER → 2021-06-02 | Outpatient (CLI) | payer OTHER | LOC: M SOG 14:18 | PROVIDERS: ATTEND Orthopaedic Surgery | DX: M54.50 Low back pain, unspecified (principal) ==

== ENCOUNTER → 2021-08-09 | Outpatient (CLI) | payer OTHER | LOC: M SOG 08:29 | PROVIDERS: ATTEND Physician Assistant | DX: M25.522 Pain in left elbow (principal) ==

== ENCOUNTER → 2021-11-21 | Outpatient (REF) | payer OTHER ==
[2021-11-21 18:12] LABS: ALBUMIN 3.7 GM/DL (3.2-5.2); ALT/SGPT 23 U/L (12-78); BILIRUBIN,TOTAL 0.4 MG/DL (0.2-1.0); BLOOD UREA NITROGEN 12 MG/DL (7-18); C REACTIVE PROTEIN QUANTITATIV 1.77 MG/DL (0.00-0.30); CALCIUM LEVEL 9.5 MG/DL (8.5-10.1); CARBON DIOXIDE LEVEL 25 MEQ/L (21-32); CHLORIDE LEVEL 107 MEQ/L (98-107); CREATININE FOR GFR 0.68 MG/DL (0.55-1.30); FERRITIN 108 NG/ML (8-252); FREE T4 0.96 NG/DL (0.76-1.46); GLOMERULAR FILTRATION RATE > 60.0 (>51); GLUCOSE, FASTING 103 MG/DL (70-100); IRON (FE) 55 UG/DL (50-170); PERCENT SATURATION 17.9 % (13.2-45.0); POTASSIUM SERUM 4.5 MEQ/L (3.5-5.1); SODIUM LEVEL 136 MEQ/L (136-145); THYROID STIMULATING HORMONE 0.912 uIU/ML (0.358-3.740); TOTAL IRON BINDING CAPACITY 308 UG/DL (250-450); TOTAL PROTEIN 7.1 GM/DL (6.4-8.2)
[2021-11-21 18:25] LABS: BASO # 0.1 10^3/uL (0.0-0.2); BASO % 0.6 % (0.0-1.0); EOS # 0.4 10^3/uL (0.0-0.5); EOS % 2.6 % (0.0-3.0); HEMATOCRIT 42.3 % (36.0-47.0); HEMOGLOBIN 13.4 g/dl (12.0-15.5); LYMPH # 3.5 10^3/uL (1.5-5.0); LYMPH % 22.5 % (24.0-44.0); MEAN CORPUSCULAR HEMOGLOBIN 27.2 pg (27.0-33.0); MEAN CORPUSCULAR HGB CONC 31.7 g/dl (32.0-36.5); MEAN CORPUSCULAR VOLUME 85.8 fl (80.0-96.0); MONO % 6.2 % (2.0-8.0); NEUTROPHILS # 10.6 10^3/uL (1.5-8.5); NEUTROPHILS % 67.5 % (36.0-66.0); PLATELET COUNT, AUTOMATED 463 10^3/uL (150-450); RED BLOOD COUNT 4.93 10^6/uL (4.00-5.40); WHITE BLOOD COUNT 15.7 10^3/uL (4.0-10.0)
[2021-11-21 18:57] LABS: TOTAL 25(OH) VITAMIN D 35.9 NG/ML (30.0-100.0)
[2021-11-21 19:03] LABS: ERYTHROCYTE SEDIMENTATION RATE 31 mm/hr (0-30)
[2021-11-21 20:09] LABS: APPEARANCE, URINE MANUAL CLEAR (CLEAR); COLOR, URINE MANUAL YELLOW (YELLOW)
[2021-11-21 20:10] LABS: BILIRUBIN, URINE MANUAL NEGATIVE (NEGATIVE); BLOOD URINE MANUAL NEGATIVE (NEGATIVE); GLUCOSE, URINE (UA) MANUAL NEGATIVE (NEGATIVE); KETONE, URINE MANUAL NEGATIVE (NEGATIVE); LEUKOCYTE ESTERASE, URINE MAN NEGATIVE (NEGATIVE); NITRITE, URINE MANUAL NEGATIVE (NEGATIVE); PROTEIN, URINE MANUAL NEGATIVE (NEGATIVE); UROBILINOGEN, URINE MANUAL NORMAL (NORMAL)
[2021-11-23 13:02] LABS: ALBUMIN 3.79 GM/DL (3.29-5.55); ALBUMIN % 53.4 % (55.8-66.1); ALPHA-1-GLOBULIN % 5.4 % (2.9-4.9); ALPHA-1-GLOBULINS 0.38 GM/DL (0.17-0.41); ALPHA-2-GLOBULINS 1.02 GM/DL (0.42-0.99); ALPHA-2-GLOBULINS % 14.3 % (7.1-11.8); BETA-1-GLOBULINS 0.48 GM/DL (0.28-0.60); BETA-1-GLOBULINS % 6.8 % (4.7-7.2); BETA-2-GLOBULINS 0.45 GM/DL (0.19-0.55); BETA-2-GLOBULINS % 6.3 % (3.2-6.5); GAMMA GLOBULIN % 13.8 % (11.1-18.8); GAMMA GLOBULINS 0.98 GM/DL (0.65-1.58)
[2021-11-23 20:08] LABS: ANA (HEP2) Negative (.)
[2021-11-24 14:17] LABS: VITAMIN B12 LEVEL 555 PG/ML (247-911)
== END ==
LOC: M SFHCCAPE 10:56
PROVIDERS: ATTEND Physician Assistant
DX: E55.9 Vitamin D deficiency, unspecified (principal); R20.2 Paresthesia of skin

== ENCOUNTER → 2021-12-07 | Outpatient (CLI) | payer OTHER | LOC: M WHC 13:09 | PROVIDERS: ATTEND Physician Assistant | DX: Z12.31 Encounter for screening mammogram for malignant neoplasm of breast (principal); R92.8 Other abnormal and inconclusive findings on diagnostic imaging of breast ==

== ENCOUNTER → 2021-12-21 | Outpatient (REF) | payer OTHER ==
[2021-12-21 17:17] LABS: BASO # 0.1 10^3/uL (0.0-0.2); BASO % 0.6 % (0.0-1.0); EOS # 0.3 10^3/uL (0.0-0.5); EOS % 2.2 % (0.0-3.0); HEMATOCRIT 42.3 % (36.0-47.0); HEMOGLOBIN 13.2 g/dl (12.0-15.5); LYMPH # 2.6 10^3/uL (1.5-5.0); LYMPH % 18.2 % (24.0-44.0); MEAN CORPUSCULAR HEMOGLOBIN 27.1 pg (27.0-33.0); MEAN CORPUSCULAR HGB CONC 31.2 g/dl (32.0-36.5); MEAN CORPUSCULAR VOLUME 86.9 fl (80.0-96.0); MONO # 0.8 10^3/uL (0.0-0.8); MONO % 5.3 % (2.0-8.0); NEUTROPHILS # 10.3 10^3/uL (1.5-8.5); NEUTROPHILS % 73.1 % (36.0-66.0); PLATELET COUNT, AUTOMATED 403 10^3/uL (150-450); RED BLOOD COUNT 4.87 10^6/uL (4.00-5.40); WHITE BLOOD COUNT 14.1 10^3/uL (4.0-10.0)
[2021-12-21 18:08] LABS: GLUCOSE, FASTING 110 MG/DL (70-100)
[2021-12-21 18:09] LABS: BLOOD UREA NITROGEN 10 MG/DL (7-18); CALCIUM LEVEL 8.7 MG/DL (8.5-10.1); CARBON DIOXIDE LEVEL 24 MEQ/L (21-32); CHLORIDE LEVEL 110 MEQ/L (98-107); CHOLESTEROL LEVEL 156 MG/DL (<200); CHOLESTEROL RISK RATIO 5.777 (<5); CREATININE FOR GFR 0.67 MG/DL (0.55-1.30); GLOMERULAR FILTRATION RATE > 60.0 (>51); HDL CHOLESTEROL 27 MG/DL (>40); LDL CHOLESTEROL 89 MG/DL (<100); NON-HDL-C 129 MG/DL; POTASSIUM SERUM 4.8 MEQ/L (3.5-5.1); RHEUMATOID FACTOR QUANT < 10.0 IU/ML (<15.0); SODIUM LEVEL 140 MEQ/L (136-145); TRIGLYCERIDES LEVEL 200 MG/DL (<150)
== END ==
LOC: M SFHCCAPE 10:18
PROVIDERS: ATTEND Physician Assistant
DX: E78.5 Hyperlipidemia, unspecified (principal); L30.9 Dermatitis, unspecified

== ENCOUNTER → 2021-12-28 | Outpatient (CLI) | payer OTHER ==
[~2021-12-28] MED LIST changes: +ARNU1INH3; +CLON-412; +DOXY50CA; +LAMO25TA4; +TEMA30CA
== END ==
LOC: M WHC 12:55
PROVIDERS: ATTEND Physician Assistant
DX: R92.8 Other abnormal and inconclusive findings on diagnostic imaging of breast (principal)

== ENCOUNTER → 2022-05-08 | Outpatient (REF) | payer OTHER ==
[~2022-05-08] MED LIST changes: +TEMA15CA2 PO
== END ==
LOC: M SFHCDERM 17:13
PROVIDERS: ATTEND Physician Assistant
DX: D49.2 Neoplasm of unspecified behavior of bone, soft tissue, and skin (principal)

== ENCOUNTER → 2022-06-25 | Outpatient (CLI) | payer OTHER | LOC: M RAD 14:14 | PROVIDERS: ATTEND Internal Medicine Pulmonary Disease | DX: J44.9 Chronic obstructive pulmonary disease, unspecified (principal); R91.1 Solitary pulmonary nodule; F17.210 Nicotine dependence, cigarettes, uncomplicated ==

== ENCOUNTER → 2023-03-26 | Outpatient (REF) ==
[~2023-03-26] MED LIST changes: -PREG75CA2 PO; +PREG75CA3 PO
== END ==
LOC: M PLAIMG 14:18
PROVIDERS: ATTEND Internal Medicine
DX: R52 Pain, unspecified (principal)

== ENCOUNTER → 2023-08-02 | Outpatient (CLI) | payer OTHER ==
[~2023-08-02] MED LIST changes: -RISP-7 PO; +RISP0.5T82 PO
== END ==
LOC: M SOG 14:42
PROVIDERS: ATTEND Orthopaedic Surgery
DX: M25.552 Pain in left hip (principal); M25.551 Pain in right hip

== ENCOUNTER → 2023-08-05 | Outpatient (CLI) | payer OTHER | LOC: M RAD 14:47 | PROVIDERS: ATTEND Nurse Practitioner Family | DX: Z12.2 Encounter for screening for malignant neoplasm of respiratory organs (principal); F17.218 Nicotine dependence, cigarettes, with other nicotine-induced disorders; R91.8 Other nonspecific abnormal finding of lung field ==

== ENCOUNTER → 2023-11-01 | Outpatient (CLI) | payer OTHER ==
[2023-11-01 13:58] LABS: BASO # 0.1 10^3/uL (0.0-0.2); BASO % 0.6 % (0.0-1.0); EOS # 0.4 10^3/uL (0.0-0.5); EOS % 2.7 % (0.0-3.0); HEMATOCRIT 42.1 % (36.0-47.0); HEMOGLOBIN 13.5 g/dl (12.0-15.5); LYMPH # 3.3 10^3/uL (1.5-5.0); LYMPH % 21.7 % (24.0-44.0); MEAN CORPUSCULAR HEMOGLOBIN 28.5 pg (27.0-33.0); MEAN CORPUSCULAR HGB CONC 32.1 g/dl (32.0-36.5); MEAN CORPUSCULAR VOLUME 88.8 fl (80.0-96.0); MONO # 0.8 10^3/uL (0.0-0.8); MONO % 5.3 % (2.0-8.0); NEUTROPHILS # 10.5 10^3/uL (1.5-8.5); NEUTROPHILS % 69.2 % (36.0-66.0); PLATELET COUNT, AUTOMATED 398 10^3/uL (150-450); RED BLOOD COUNT 4.74 10^6/uL (4.00-5.40); WHITE BLOOD COUNT 15.1 10^3/uL (4.0-10.0)
[2023-11-01 14:12] LABS: HEMOGLOBIN A1c 5.6 % (4.0-6.0)
[2023-11-01 14:24] LABS: ALBUMIN 3.5 G/DL (3.2-5.2); ALKALINE PHOSPHATASE 94 U/L (46-116); ALT/SGPT 17 U/L (7.0-40); AST/SGOT < 8 U/L (<34); BILIRUBIN,TOTAL 0.4 MG/DL (0.3-1.2); BLOOD UREA NITROGEN 8 MG/DL (9-23); CALCIUM LEVEL 9.3 MG/DL (8.5-10.1); CARBON DIOXIDE LEVEL 27 MMOL/L (20-31); CHLORIDE LEVEL 110 MMOL/L (98-107); CHOLESTEROL LEVEL 180 MG/DL (<200); CHOLESTEROL RISK RATIO 6.74 (<5); CREATININE FOR GFR 0.65 MG/DL (0.55-1.30); GLOMERULAR FILTRATION RATE > 60.0 (>51); GLUCOSE, FASTING 96 MG/DL (60-100); HDL CHOLESTEROL 26.7 MG/DL (>40); LDL CHOLESTEROL 111.9 MG/DL (<100); NON-HDL-C 153.3 MG/DL; POTASSIUM SERUM 5.1 MMOL/L (3.5-5.1); SODIUM LEVEL 142 MMOL/L (136-145); TOTAL PROTEIN 6.8 G/DL (5.7-8.2); TRIGLYCERIDES LEVEL 207 MG/DL (<150)
[2023-11-01 14:28] LABS: THYROID STIMULATING HORMONE 0.872 uIU/ML (0.55-4.78)
[2023-11-01 14:29] LABS: FOLATE 12.9 NG/ML (>5.4); VITAMIN B12 LEVEL 291 PG/ML (211-911)
== END ==
LOC: M RAD 12:40
PROVIDERS: ATTEND Physician Assistant Medical
DX: R07.81 Pleurodynia (principal); E53.8 Deficiency of other specified B group vitamins; F39 Unspecified mood [affective] disorder; F41.8 Other specified anxiety disorders; E78.5 Hyperlipidemia, unspecified; R73.01 Impaired fasting glucose

== ENCOUNTER → 2023-11-28 | Outpatient (CLI) | payer OTHER, SELFPAY | LOC: M WHC 13:58 | PROVIDERS: ATTEND Physician Assistant Medical | DX: Z12.31 Encounter for screening mammogram for malignant neoplasm of breast (principal) ==

== ENCOUNTER → 2024-05-19 | Outpatient (REF) | payer OTHER ==
[2024-05-19 17:42] LABS: ALBUMIN 3.2 G/DL (3.2-5.2); ALKALINE PHOSPHATASE 69 U/L (35-104); ALT/SGPT 15 U/L (7.0-40); AST/SGOT 9 U/L (<34); BILIRUBIN,TOTAL < 0.2 MG/DL (0.3-1.2); BLOOD UREA NITROGEN 11 MG/DL (9-23); CALCIUM LEVEL 8.9 MG/DL (8.5-10.1); CARBON DIOXIDE LEVEL 26 MMOL/L (20-31); CHLORIDE LEVEL 113 MMOL/L (98-107); CHOLESTEROL LEVEL 146 MG/DL (<200); CHOLESTEROL RISK RATIO 4.89 (<5); CREATININE FOR GFR 0.61 MG/DL (0.55-1.30); GLOMERULAR FILTRATION RATE > 60.0 (>51); GLUCOSE, FASTING 113 MG/DL (60-100); HDL CHOLESTEROL 29.8 MG/DL (>40); LDL CHOLESTEROL 90.2 MG/DL (<100); NON-HDL-C 116.2 MG/DL; POTASSIUM SERUM 4.6 MMOL/L (3.5-5.1); SODIUM LEVEL 141 MMOL/L (136-145); TOTAL PROTEIN 6.4 G/DL (5.7-8.2); TRIGLYCERIDES LEVEL 130 MG/DL (<150)
[2024-05-19 17:43] LABS: TOTAL 25(OH) VITAMIN D 23.4 NG/ML (20.0-100.0)
[2024-05-19 17:52] LABS: BASO # 0.1 10^3/uL (0.0-0.2); BASO % 0.9 % (0.0-1.0); EOS # 0.5 10^3/uL (0.0-0.5); EOS % 3.6 % (0.0-3.0); HEMATOCRIT 37.2 % (36.0-47.0); HEMOGLOBIN 11.7 g/dl (12.0-15.5); LYMPH # 3.4 10^3/uL (1.5-5.0); LYMPH % 24.3 % (24.0-44.0); MEAN CORPUSCULAR HEMOGLOBIN 27.8 pg (27.0-33.0); MEAN CORPUSCULAR HGB CONC 31.5 g/dl (32.0-36.5); MEAN CORPUSCULAR VOLUME 88.4 fl (80.0-96.0); MONO % 7.1 % (2.0-8.0); NEUTROPHILS # 8.9 10^3/uL (1.5-8.5); NEUTROPHILS % 63.7 % (36.0-66.0); PLATELET COUNT, AUTOMATED 405 10^3/uL (150-450); RED BLOOD COUNT 4.21 10^6/uL (4.00-5.40)
== END ==
LOC: M SFHCCAPE 07:29
PROVIDERS: ATTEND Physician Assistant Medical
DX: D72.829 Elevated white blood cell count, unspecified (principal); E78.5 Hyperlipidemia, unspecified; F39 Unspecified mood [affective] disorder; F41.8 Other specified anxiety disorders; E55.9 Vitamin D deficiency, unspecified

== ENCOUNTER → 2024-07-08 | Outpatient (REF) | payer OTHER | LOC: M SFHCCAPE 14:21 | PROVIDERS: ATTEND Physician Assistant Medical | DX: M54.50 Low back pain, unspecified (principal) ==

== ENCOUNTER → 2024-10-14 | Outpatient (CLI) | payer OTHER ==
[~2024-10-14] MED LIST changes: +LAMO-18; -LAMO25TA4
== END ==
LOC: M RAD 13:33
PROVIDERS: ATTEND Physician Assistant
DX: F17.218 Nicotine dependence, cigarettes, with other nicotine-induced disorders (principal)

== ENCOUNTER → 2024-11-10 | Outpatient (CLI) | payer OTHER | LOC: M PLARAD 09:40 | PROVIDERS: ATTEND Physician Assistant | DX: R91.8 Other nonspecific abnormal finding of lung field (principal) | CPT/HCPCS: 78815; A9552 ==

== ENCOUNTER → 2024-11-17 | Outpatient (REF) | payer OTHER ==
[2024-11-17 18:18] LABS: ALT/SGPT 22 U/L (7.0-40); AST/SGOT 16 U/L (<34); CALCIUM LEVEL 8.9 MG/DL (8.5-10.1); CARBON DIOXIDE LEVEL 28 MMOL/L (20-31); CHLORIDE LEVEL 107 MMOL/L (98-107); CREATININE FOR GFR 0.68 MG/DL (0.55-1.30); GLOMERULAR FILTRATION RATE > 90.0 (>51); POTASSIUM SERUM 5.2 MMOL/L (3.5-5.1); SODIUM LEVEL 143 MMOL/L (136-145)
[2024-11-17 18:22] LABS: VITAMIN B12 LEVEL 306 PG/ML (211-911)
[2024-11-17 18:29] LABS: BASO # 0.1 10^3/uL (0.0-0.2); BASO % 0.9 % (0.0-1.0); EOS # 0.3 10^3/uL (0.0-0.5); EOS % 3.0 % (0.0-3.0); LYMPH # 2.9 10^3/uL (1.5-5.0); LYMPH % 26.9 % (24.0-44.0); MONO # 0.8 10^3/uL (0.0-0.8); MONO % 7.8 % (2.0-8.0); NEUTROPHILS # 6.6 10^3/uL (1.5-8.5); NEUTROPHILS % 61.2 % (36.0-66.0); PLATELET COUNT, AUTOMATED 424 10^3/uL (150-450)
== END ==
LOC: M SFHCCAPE 07:29
PROVIDERS: ATTEND Physician Assistant Medical
DX: F41.8 Other specified anxiety disorders (principal); F39 Unspecified mood [affective] disorder; D72.829 Elevated white blood cell count, unspecified

== ENCOUNTER → 2024-12-30 | Outpatient (CLI) | payer OTHER | LOC: M WHC 11:42 | PROVIDERS: ATTEND Physician Assistant Medical | DX: Z12.31 Encounter for screening mammogram for malignant neoplasm of breast (principal); R92.333 Mammographic heterogeneous density, bilateral breasts ==

== ENCOUNTER → 2024-12-30 | Outpatient (CLI) | payer OTHER ==
[2024-12-30 14:44] LABS: Trichomonas vaginalis (AMP) NOT DETECTED (NEGATIVE)
[2024-12-30 15:07] LABS: GC DNA AMPLIFICATION NEGATIVE (NEGATIVE)
[2024-12-30 15:41] LABS: HIV 1&2 SCREEN NEGATIVE (NEGATIVE)
[2024-12-30 15:49] LABS: HEPATITIS C VIRUS ABY INDEX 0.03 INDEX (<0.8)
== END ==
LOC: M PLALAB 11:45
PROVIDERS: ATTEND Obstetrics & Gynecology
DX: Z11.3 Encounter for screening for infections with a predominantly sexual mode of transmission (principal)

== ENCOUNTER → 2025-02-01 | Outpatient (CLI) | payer OTHER ==
[~2025-02-01] MED LIST changes: +BUPR-363 PO; -BUPR75TA5 PO
[2025-02-01 11:45] LABS: PLATELET COUNT, AUTOMATED 440 10^3/uL (150-450)
[2025-02-01 11:58] LABS: INR 1.0
== END ==
LOC: M LABDRAWC 09:43
PROVIDERS: ATTEND Physician Assistant
DX: R91.8 Other nonspecific abnormal finding of lung field (principal)

== ENCOUNTER → 2025-03-09 | Outpatient (CLI) | payer OTHER ==
[~2025-03-09] MED LIST changes: +ARIP10TA63; -ARNU1INH3; +ARNU1INH3 INH; +DOXY100C3 PO; +DUPI300P INJ; +FERR1TAB8 PO; +FLUC150T9 PO; +LEVOTAB10 PO; +NICO21PAT TD; +SERTRALINE; +THERTAB52 PO
== END ==
LOC: M PLARAD 14:49
PROVIDERS: ATTEND Thoracic Surgery (Cardiothoracic Vascular Surgery)
DX: C34.90 Malignant neoplasm of unspecified part of unspecified bronchus or lung (principal)
CPT/HCPCS: 78815; A9552